=== PATIENT | female | born 1985 | race Caucasian/White ===

== ENCOUNTER 2018-01-06 03:35 | Emergency (ER) | payer MEDICAID, SELFPAY ==
[2018-01-06 03:36] VITALS: BP 132/91; PULSE 103; RESP 15; TEMP 36.8; O2SAT 97; BMI 28.3
--- NOTE | 2018-01-06 03:54 | ED.DCSUM_ITS ---
- ER Visit Summary Date of Service: 01/06/18 Chief Complaint: [] Nasal tip skin tenderness History of Present Illness: The patient is a 32 F stated she developed a pimple on the tip of her nose and now there is some redness and up of her nose. This started just a day ago. She does pick at pimples. No home treatment. History of IV drug use. She is never injected on the nose Physical Examination: [] Vital signs reviewed General: Well-nourished well-developed Head: Normocephalic atraumatic Eyes: Pupils equal round and reactive to light extraocular movements intact ENT: TMs clear no hemotympanum no trauma. See skin exam Neck: Nontender full range of motion Cardiovascular: Regular rate rhythm no murmurs normal S1-S2 Respiratory: No distress clear to auscultation bilaterally chest nontender Abdomen: Soft nontender nondistended normal bowel sounds no masses Back: Nontender no CVA tenderness Extremities: Nontender active range of motion ?4 extremities no trauma Skin: Nasal tip has a soft very small open pimple that was broken open. There is no abscess. She has very mild swelling and inflammation to the tip of her nose measuring 0.5 x 0.5 cm. Neuro alert oriented cranial nerves II through XII intact normal strength sensation reflexes Test Results: [] Emergency Department Course and Treatment: [] She given oral Bactrim and a prescription for Bactroban ointment. She will put this on a lesions on her nose. At this time she is has a mild superficial cellulitis Treatment Plan: [] Disposition: [] Impression: [] Nasal tip cellulitis This note was generated with [employer] dictation software. It may contain incorrect words, spelling, and punctuation that were not noted in review of the chart prior to signing ED Disposition - Plan for ED Patient: Chief Complaint: Wound Referrals: Care Physician,No Primary [Primary Care Provider] -
--- NOTE | 2018-01-06 03:54 | ED.DEP ---
ED Disposition - Plan for ED Patient: Disposition: Home or Assisted Living Chief Complaint: Wound Instructions: Discharge Instructions for Cellulitis Prescriptions: Smz/Tmp Ds [Bactrim Ds] 1 tab PO BID #14 tab Mupirocin [Bactroban] 1 applic TOPICAL TID #1 tube Referrals: Care Physician,No Primary [Primary Care Provider] - Liam Kamara DO [NON CLINICAL AFFILIATE] -
[2018-01-06] MEDS: Smz/Tmp Ds Tablet 1 TABLET PO (03:58)
== END 2018-01-06 03:59 | disposition home or self-care (01) ==
PROVIDERS: Emergency Provider Emergency Medicine; Family Provider Family Medicine; PCP Family Medicine
DX: L03.211 Cellulitis of face (principal); B19.20 Unspecified viral hepatitis C without hepatic coma; Z72.0 Tobacco use
CPT/HCPCS: 99283

== ENCOUNTER 2018-01-15 02:54 | Emergency (ER) | payer MEDICAID, SELFPAY ==
[2018-01-15 03:04] VITALS: BP 120/60; PULSE 86; RESP 16; TEMP 37.1; O2SAT 97; BMI 28.4
--- NOTE | 2018-01-15 03:09 | ED.DCSUM_ITS ---
- ER Visit Summary Date of Service: 01/15/18 Chief Complaint: Heroin overdose History of Present Illness: The patient is a 32 F who is brought in by EMS in the company of police following an overdose. Apparently she was in the basement of a house where they were doing tattoos and she overdosed on heroin. She received nasal and IV Narcan. Patient noted by EMS to be breathing shallow at only about 2 times per minute. After Narcan she was vomiting and is more alert patient states that she is cold. Physical Examination: Afebrile vital signs are stable Gen: Well-nourished well-developed Head: Normocephalic atraumatic Eyes: Perrl EOMI ENT: TMs clear no rhinorrhea moist mucous membranes Neck: Supple no lymphadenopathy no JVD nontender CVS: Regular rate rhythm no murmurs normal S1-S2 Respiratory: No distress clear to auscultation bilaterally chest nontender Abdomen: Soft nontender nondistended normal bowel sounds no masses Back: Nontender Extremity: Nontender no edema Skin: Normal color no rash piloerection Neuro: alert orientated ?3 CN II-XII intact normal strength sensation reflexes gait cerebellar Psych: Angry Emergency Department Course and Treatment: Observed in the department. She is actively texting on her phone and conversing with a visitor. She will be discharged home. Given referrals. Impression: 1. Opiate overdose This note was generated with [employer] dictation software. It may contain incorrect words, spelling, and punctuation that were not noted in review of the chart prior to signing ED Disposition - Plan for ED Patient: Disposition: Home or Assisted Living Chief Complaint: Overdose Instructions: ED Overdose Opiate Referrals: Richar Chris MD [Primary Care Provider] - As soon as possible EIGHTY,ONE [STAFF PHYSICIAN] - As soon as possible
== END 2018-01-15 03:58 | disposition home or self-care (01) ==
PROVIDERS: Emergency Provider Emergency Medicine; Family Provider Family Medicine; PCP Family Medicine
DX: T40.1X1A Poisoning by heroin, accidental (unintentional), initial encounter (principal); Y92.008 Other place in unspecified non-institutional (private) residence as the place of occurrence of the external cause; Z72.0 Tobacco use
CPT/HCPCS: 99284; J7030

== ENCOUNTER 2018-04-19 22:48 | Emergency (ER) | payer MEDICAID, SELFPAY ==
[2018-04-19 22:49] VITALS: BP 129/86; PULSE 83; RESP 16; TEMP 36.7; O2SAT 100; BMI 27.1
--- NOTE | 2018-04-19 23:17 | ED.DCSUM_ITS ---
- ER Visit Summary Date of Service: 04/19/18 Chief Complaint: [] Right hip abscess History of Present Illness: The patient is a 33 F [] complaining of right hip abscess. Patient stated it started 4 days ago. It came on gradually. It is continuous and mild in nature. There is a mild ache to it. Current severity is mild. Maximum severity is mild. Worsened by touching it. Relieved by not touching it. Denies any associated symptoms. She has had 4 in the past. She has open this up today and squeezed out some mild purulence. Recent illness patient denies Past history include abscess Past surgical history include cholecystectomy and Family doctor Dot Prior records have been reviewed Medications list reviewed Allergies denies Positive tobacco and denies alcohol or illegal drugs currently ROS General: Denies fever, chills, sweats Eyes: Denies visual changes, blurred vision, double vision ENT: Denies ear pain, rhinorrhea, sore throat Cardiovascular: Denies chest pain, palpitations, heart racing Respiratory: Denies dyspnea, cough, sputum, dyspnea on exertion, orthopnea,PND GI: Denies abdominal pain, nausea, vomiting, diarrhea, constipation, melena : Denies dysuria, hematuria, frequency Musculoskeletal: Denies myalgias, arthralgias, neck pain, back pain Skin: abscess to the right hip Neuro: Denies headache, weakness, paresthesia Psych: Denies depression, anxiety Endo: Denies polyuria, polydipsia, polyphagia Heme: Denies easy bruising, easy bleeding, lymphadenopathy Allergy: Denies hives, swelling Physical Examination: [] Vital signs reviewed General: Well-nourished well-developed Head: Normocephalic atraumatic Eyes: Pupils equal round and reactive to light extraocular movements intact ENT: TMs clear no hemotympanum no trauma Neck: Nontender full range of motion Cardiovascular: Regular rate rhythm no murmurs normal S1-S2 Respiratory: No distress clear to auscultation bilaterally chest nontender Abdomen: Soft nontender nondistended normal bowel sounds no masses Back: Nontender no CVA tenderness Extremities: Nontender active range of motion ?4 extremities no trauma Skin: Right hip has a 0.5 x 0.5 superficial abscess. There is a 2 x 2 mm central draining open area. There is no pus when squeezing. There is 1 mm of surrounding redness. Neuro alert oriented cranial nerves II through XII intact normal strength sensation reflexes Test Results: [] Emergency Department Course and Treatment: [] This time I think the patient has a superficial MRSA abscess without cellulitis. Given Bactrim. It is opened and drained. She will continue warm compresses and squeezing it. She will continue Bactrim. I do not feel there is anything to incise and drain Treatment Plan: [] Disposition: [] Discharge Impression: [] Right hip draining abscess This note was generated with [employer] dictation software. It may contain incorrect words, spelling, and punctuation that were not noted in review of the chart p rior to signing ED Disposition - Plan for ED Patient: Chief Complaint: Abscess Referrals: Richar Chris MD [Primary Care Provider] -
--- NOTE | 2018-04-19 23:17 | ED.DEP ---
ED Disposition - Plan for ED Patient: Disposition: Home or Assisted Living Chief Complaint: Abscess Instructions: ED Staph Infec Abx Tx Only Prescriptions: Smz/Tmp Ds [Bactrim Ds] 1 tab PO BID #14 tab Referrals: Richar Chris MD [Primary Care Provider] -
[2018-04-19] MEDS: Smz/Tmp Ds Tablet 1 TABLET PO (23:22)
== END 2018-04-19 23:27 | disposition home or self-care (01) ==
LOC: ED 23:20
PROVIDERS: Emergency Provider Emergency Medicine; Family Provider Family Medicine; PCP Family Medicine
DX: L02.91 Cutaneous abscess, unspecified (principal); Z72.0 Tobacco use
CPT/HCPCS: 99283

== ENCOUNTER 2018-07-17 14:13 | Emergency (ER) | payer MEDICAID, SELFPAY ==
[2018-07-17 14:14] VITALS: BP 117/61; PULSE 93; RESP 15; TEMP 36.3; O2SAT 99; BMI 26.5
--- NOTE | 2018-07-17 15:04 | ED.DCSUM_ITS ---
- ER Visit Summary Date of Service: 07/17/18 Chief Complaint: Abscess to left cheek and right axilla History of Present Illness: The patient is a 33 F who presents with abscess to her left cheek and right axilla that has been getting worse since yesterday. Patient noted some redness over the left infraorbital area yesterday. Patient states she has had some pain and swelling in her right axilla for a couple days. Patient denies any fevers or chills. Patient denies any discharge or drainage. Patient denies any visual changes. Patient denies any nausea or vomiting. She is also requesting a prescription for triamcinolone cream for the eczema on her hands. Physical Examination: Vital signs are stable. Patient is afebrile. Patient is in no acute distress. Skin is warm and dry. There is a tender erythematous area over the left lateral infraorbital area. There is no fluctuance. There is no discharge or drainage. There is no surrounding erythema. There is also a tender area in the right axilla. There is slight erythema. There is no discharge or drainage. There is no fluctuance. Pupils are equal, round, reactive to light bilaterally. Extra muscles are intact. Oral mucosa is pink and moist. Neck is supple. Trachea is midline. No JVD. Heart was regular rate and rhythm. Lungs are clear and equal bilateral. Abdomen is soft and nontender. Skin is warm dry. There is eczema noted on the palms of her hands bilaterally. There is some cracking. There is no discharge or drainage. There is no erythema noted. Emergency Department Course and Treatment: Patient was given a prescription for clindamycin and triamcinolone cream. Patient was instructed to follow-up with a primary care physician in 5-7 days. Patient was given a referral. Patient understood and was agreeable with the plan. All questions were answered. Disposition: Discharge home Impression: 1. Facial abscess 2. Right axillary abscess 3. Eczema This note was generated with [employer] software. It may contain incorrect words, spelling, and punctuation that were not noted in review of the chart prior to signing ED Disposition - Plan for ED Patient: Disposition: Home or Assisted Living Diagnosis: Eczema, Facial abscess, Abscess of right axilla Instructions: ED Staph Infec Abx Tx Only, ED Dermatitis Atopic Eczema Prescriptions: Triamcinolone 0.1% Cream [Robertalog] 1 applic TOPICAL BID #30 g Clindamycin HCl [Cleocin] 300 mg PO Q6H #40 cap Referrals: Richar Chris MD [Primary Care Provider] - 5-7 Days
[2018-07-17 15:23] VITALS: BP 116/64; PULSE 87; RESP 16; O2SAT 100
== END 2018-07-17 15:24 | disposition home or self-care (01) ==
PROVIDERS: Emergency Provider Emergency Medicine; Family Provider Family Medicine; PCP Family Medicine
DX: L02.01 Cutaneous abscess of face (principal); L02.411 Cutaneous abscess of right axilla; L30.9 Dermatitis, unspecified; Z72.0 Tobacco use
CPT/HCPCS: 99282

== ENCOUNTER 2018-07-27 13:47 | Emergency (ER) | payer MEDICAID, SELFPAY ==
[2018-07-27 13:47] VITALS: BP 127/69; PULSE 106; RESP 12; TEMP 36.2; O2SAT 97; BMI 26.5
[2018-07-27 14:19] LABS: Internal QC Validated? YES +Cl - CLEAR BKGD
[2018-07-27 14:26] LABS: Pregnancy, Urine Positive Negative
--- NOTE | 2018-07-27 14:29 | ED.VIS.GEN ---
History of Present Illness Chief Complaint: Informant: Patient Onset: Today Context: Gradual Onset Current Severity: Mild Maximum Severity: Mild Narrative: 33-year-old female presents requesting a test. She is 3 weeks late on her menstrual period. She already had a positive test but she has been accepted into an outpatient heroin detox program and needs proof of before she can go there today. She has no other complaints at all. She denies suicidal thoughts or ideation. She has no vaginal bleeding, abdominal pain, or pelvic pressure at all. Past Medical History - Allergies and Home Meds Allergies/Adverse Reactions: Allergies No Known Allergies Allergy (Verified 07/27/18 13:50) Primary Care Physician: Richar Chris MD [Primary Care Provider] - Prior records reviewed: No Smoking Status: Current every day smoker Drugs: Heroin Review of Systems General: Denies: Chills, Fever, Sweats Eyes: Denies: Visual changes - bilaterally, Diplopia ENT: Denies: Rhinorrhea, Sore throat Cardiovascular: Denies: Chest pain, Palpitations Respiratory: Denies: Dyspnea, Cough, Dyspnea on exertion Gastrointestinal: Denies: Abdominal pain, Nausea, Vomiting, Diarrhea, Melena, Hematochezia Genitourinary: Denies: Dysuria, Hematuria, Frequency Musculoskeletal: Denies: Back pain, Extremity Pain Skin: Denies: Rash, Wounds Neurological: Denies: Headache, Weakness, Numbness Physical Exam Vital Signs/Narrative: Vital Signs Temp Pulse Resp BP Pulse Ox 07/27/18 13:47 97.1 F L 106 H 12 127/69 H 97 General: Well nourished, Well developed, No Acute Distress Head: Normocephalic, Atraumatic Eyes: Perrl, EOMI ENT: Moist mucous membranes, No rhinorrhea Neck: Supple, Nontender Cardiovascular: Regular rate, Regular rhythm, No murmurs Respiratory: No distress, CTA bilaterally, Chest nontender Abdomen: Soft, Nontender, Nondistended, Normal bowel sounds Back: Nontender, Normal Inspection Extremities: Nontender, No edema Skin: Normal color, No rash Neurological: Alert, Oriented x3, Cranial nerves II-XII grossly intact, Normal Strength, Normal Sensation Psychological: Normal affect, Normal Mood Diagnostic/Tx/Re-eval - Medical Decision Making She has no complaints at all. No bleeding or pelvic pain to suggest ectopic . Urine test was positive. She basically states that she just wanted a piece of paper with the results so that she could go to the detox facility. No depression or suicidal thoughts/ideation. ED Disposition - Plan for ED Patient: Diagnosis: OPIOID ADDICT, First trimester Instructions: ED Care Prescriptions: Pnv No.95/Ferrous Fum/Folic AC [ Vitamins Tablet] 1 each PO DAILY #30 tablet Referrals: Richar hCris MD [Primary Care Provider] -
--- NOTE | 2018-07-27 14:48 | ED.RN ---
pt left without d/c papers.
== END 2018-07-27 14:48 | disposition home or self-care (01) ==
LOC: ED 14:47
PROVIDERS: Emergency Provider Emergency Medicine; Family Provider Family Medicine; PCP Family Medicine
DX: O99.321 Drug use complicating pregnancy, first trimester (principal); F11.20 Opioid dependence, uncomplicated; O99.331 Smoking (tobacco) complicating pregnancy, first trimester; Z3A.00 Weeks of gestation of pregnancy not specified
CPT/HCPCS: 81025; 99282

== ENCOUNTER 2018-10-08 07:29 | Emergency (ER) | payer MEDICAID, SELFPAY ==
[2018-10-08 07:29] VITALS: BP 118/58; PULSE 88; RESP 16; TEMP 36.2; O2SAT 97; BMI 26.5
--- NOTE | 2018-10-08 08:17 | ED.VISSUMM ---
- ER Visit Summary Date of Service: 10/08/18 Chief Complaint: Right axillary abscess History of Present Illness: The patient is a 33 F history of prior abscesses. Currently 14 weeks . Nondiabetic. Patient states for the last 1 to 2 weeks she is had a right axillary abscess. She denies any fever or chills. Denies any other complaints. Physical Examination: Young female no acute distress. Vital signs are stable afebrile. HEENT exam unremarkable. Lungs clear to auscultation bilaterally. Heart regular rhythm no murmur. Abdomen soft and nontender. Moving all 4 extremities. Neurovascular intact. Her right axilla has about a quarter sized fluctuant abscess. There is no cellulitis. It is mildly tender. Neurologically she is awake and alert. Test Results: None Emergency Department Course and Treatment: Patient and I discussed incision and drainage. She is adamantly against it. States she has had these drained before and it was very painful. I explained her there always we could drain it that would not be as uncomfortable. She was again offered and again denied. She understands that she may return because the antibiotics may not work without incision and drainage. She is willing to take that risk. I told her if this was me I would have it drained. Treatment Plan: Keflex 500 4 times daily for 10 days 40 no refill. Return if getting worse. Disposition: Discharge Impression: Right axillary abscess (patient refused incision and drainage) Reportedly at 14 weeks This note was generated with [employer] dictation software. It may contain incorrect words, spelling, and punctuation that were not noted in review of the chart prior to signing ED Disposition - Plan for ED Patient: Referrals: Richar Chris MD [Primary Care Provider] -
--- NOTE | 2018-10-08 08:19 | ED.DEP ---
ED Disposition - Plan for ED Patient: Disposition: Home or Assisted Living Instructions: ABSCESS, Antiobiotic Treatment Only Prescriptions: Cephalexin [Keflex] 500 mg PO Q6 #40 cap Prescription Printed Referrals: Richar Chris MD [Primary Care Provider] - 3-5 Days if not improving Additional Instructions: Warm compresses to the area. Tylenol for pain. Return if this is getting worse to have it drained.
[2018-10-08] MEDS: Cephalexin 250 MG Capsule 500 MG PO (08:30)
== END 2018-10-08 08:34 | disposition home or self-care (01) ==
PROVIDERS: Emergency Provider Emergency Medicine
DX: O99.712 Diseases of the skin and subcutaneous tissue complicating pregnancy, second trimester (principal); L02.411 Cutaneous abscess of right axilla; O99.332 Smoking (tobacco) complicating pregnancy, second trimester; Z3A.14 14 weeks gestation of pregnancy
CPT/HCPCS: 99283

== ENCOUNTER 2018-11-15 03:13 | Emergency (ER) | payer MEDICAID, SELFPAY ==
[2018-11-15 03:13] VITALS: BP 110/65; PULSE 117; RESP 20; TEMP 37.1; O2SAT 100; BMI 28.3
--- NOTE | 2018-11-15 03:40 | ED.VIS.GEN ---
History of Present Illness Chief Complaint: General Illness Detail of Chief Complaint: pain Informant: Patient Onset: Today - past 16-20 hrs Context: Gradual Onset Timing: Continuous Quality: ache Location: see below Current Severity: Severe Maximum Severity: Severe Worsened by: moving, walking Relieved by: remaining still Associated Symptoms: migraine Narrative: Patient states she started having left calf pain early in the day. This was followed by pain in her right thumb joints. As the day went on all of her fingers became affected, as well as her tongue. Now she states the pain in her fingers associated she cannot move them. She was dropping things because of the pain. She denies any numbness or neurologic weakness. At some point she developed a bifrontal headache with photophobia and blurry vision, no nausea or vomiting. This is typical for migraine she has had off and on in the past. At some point during the day she used heroin which she does often, she gets from the same dealer and cannot remember before or after which symptoms started that she used. She denies any fevers. She denies any back pain but she is having some soreness in her neck that is not severe. She is 4-5 months . She tried taking Tylenol but it did not help. - Past Medical History (1) Hepatitis C virus carrier state Status: Chronic (2) OPIOID ADDICT Status: Chronic Past Medical History - Allergies and Home Meds Allergies/Adverse Reactions: Allergies No Known Allergies Allergy (Verified 11/15/18 03:17) Surgical History: - - Smoking Status: Current every day smoker Drugs: Heroin Review of Systems General: Denies: Chills, Fever, Sweats Eyes: Denies: Visual changes - bilaterally, Diplopia ENT: Reports: - - Tongue pain with blister. Denies: Rhinorrhea, Sore throat Cardiovascular: Denies: Chest pain, Palpitations Respiratory: Denies: Dyspnea, Cough, Dyspnea on exertion Gastrointestinal: Denies: Abdominal pain, Nausea, Vomiting, Diarrhea, Melena, Hematochezia Genitourinary: Denies: Dysuria, Hematuria, Frequency Musculoskeletal: Reports: Extremity Pain. Denies: Back pain, Swelling Skin: Denies: Rash, Wounds Neurological: Reports: Headache. Denies: Weakness, Numbness Physical Exam Vital Signs/Narrative: Vital Signs Temp Pulse Resp BP Pulse Ox 11/15/18 03:13 98.8 F 117 H 20 H 110/65 100 Inital Vital Signs reviewed: Yes General: Well nourished, Well developed, No Acute Distress Head: Normocephalic, Atraumatic Eyes: Perrl, EOMI, - - Significant photophobia ENT: No rhinorrhea, Dry mucous membranes - Tongue, with a tender aphthous ulcer on the dorsal aspect distally/anterior approximately 1 cm from tip of tongue Neck: Supple, Nontender, No lymphadenopathy Cardiovascular: Regular rate, Regular rhythm, No murmurs, Normal S1, Normal S2 Respiratory: No distress, CTA bilaterally, Chest nontender Abdomen: Soft, Nontender, Normal bowel sounds. Negative for: Nondistended - Gravid uterus Back: Nontender, Normal Inspection Extremities: Calf Tenderness - Left, which appears larger than the right but without pretibial edema. Excellent range of motion of ankle without difficulty., - - No erythema, joint swelling, or tenderness of fingers, but severe pain with trying to move any of them. No osler's nodes or splinter hemorrhages on pads or nails (those of which were not painted). Skin: Normal color, No rash Neurological: Alert, Oriented x3, Cranial nerves II-XII grossly intact, Normal Strength, Normal Sensation Psychological: Normal Mood, - - Anxious Diagnostic/Tx/Re-eval Laboratory Tests 11/15/18 Range/Units 05:11 Sodium 136 (136-145) mmol/L Potassium 3.4 L (3.5-5.1) mmol/L Chloride 108 H (98-107) mmol/L Carbon Dioxide 20.0 L (21.0-32.0) mmol/L Anion Gap 8 (5-15) BUN 8 (7-18) mg/dL Creatinine 0.45 L (0.55-1.02) mg/dL Estim Creat Clear Calc 145.72 ml/min Est GFR (MDRD) Af Amer 207 (>60) mL/min Est GFR (MDRD) Non-Af 171 (>60) mL/min BUN/Creatinine Ratio 17.9 (10-20) RATIO Glucose 104 (74-106) mg/dL Calcium 8.2 L (8.5-10.1) mg/dL Total Creatine Kinase 23 L (26-192) U/L - Medical Decision Making I think it is reasonable to obtain an ultrasound of her left lower extremity to rule out DVT given her calf pain and possible swelling, however that is not available at this time, she has no symptoms at or above the trifurcation/popliteal space, so outpatient ultrasound tomorrow or later today is reasonable and will be set up for the patient. The rest of her symptoms are not from obvious cause. Unknown if her heroin abuse is related or not. The lesion on her tongue appears to be an aphthous ulcer. She has no objective erythema, excessive warmth, or swelling of any joints of her fingers. They are subjectively very painful to move. There is no erythema on the upper extremities or lymphangitis. All compartments are soft. She has a very antalgic gait but is able. She is crying and moaning. She was initially given IV fluids and Reglan and hoping that would help the symptoms but did not help her pain or her migraine. Being she has very limited options here. I sent electrolyte/chemistry panel and CPK, they show slightly low potassium and calcium levels, and are otherwise unremarkable. She was advised to stay hydrated and rest and have her ultrasound as soon as she is able. ED Disposition - Plan for ED Patient: Disposition: Home or Assisted Living Diagnosis: Migraine, Second trimester , Opiate abuse, continuous, Joint pain in fingers of both hands, Hypokalemia, Hypocalcemia Instructions: HYPOCALCEMIA (Adult), Hypokalemia, Opiate Abuse Referrals: Clark Roper MD [STAFF PHYSICIAN] - 1-2 Days if not improving [facility] [STAFF PHYSICIAN] - As Needed
[2018-11-15] MEDS: Metoclopramide 10 MG/2 ML Vial IV (03:50)
[2018-11-15] MEDS: LORazepam 2 MG/ML Syringe 0.5 MG IV (03:50)
[2018-11-15 05:39] LABS: Anion Gap 8 (5-15); BUN 8 mg/dL (7-18); BUN/Creat Ratio 17.9 RATIO (10-20); CPK Total, Creatine Kinase 23 U/L (26-192); Calcium,Total 8.2 mg/dL (8.5-10.1); Chloride 108 mmol/L (98-107); Creatinine, Serum 0.45 mg/dL (0.55-1.02); EST Glomerular Filtration Rate 171 mL/min (>60); Est Glom Filt Rate - Afr Amer 207 mL/min (>60); Estimated Creatinine Clearance 145.72 ml/min; Glucose 104 mg/dL (74-106); Potassium 3.4 mmol/L (3.5-5.1); Sodium Level 136 mmol/L (136-145)
[2018-11-15] MEDS: Calcium Carbonate 500 MG Tablet 1000 MG PO (06:02)
[2018-11-15] MEDS: Acetaminophen 500 MG Tablet 1000 MG PO (06:02)
[2018-11-15 06:09] VITALS: BP 112/65; PULSE 111; RESP 16; O2SAT 100
== END 2018-11-15 06:27 | disposition home or self-care (01) ==
PROVIDERS: Emergency Provider Emergency Medicine
DX: O99.352 Diseases of the nervous system complicating pregnancy, second trimester (principal); G43.909 Migraine, unspecified, not intractable, without status migrainosus; O99.322 Drug use complicating pregnancy, second trimester; F11.10 Opioid abuse, uncomplicated; O99.282 Endocrine, nutritional and metabolic diseases complicating pregnancy, second trimester; E83.51 Hypocalcemia; O98.412 Viral hepatitis complicating pregnancy, second trimester; O99.332 Smoking (tobacco) complicating pregnancy, second trimester; Z3A.00 Weeks of gestation of pregnancy not specified
CPT/HCPCS: 80048; 82550; 96361; 96374; 96375; 99284; J7040; A4216

== ENCOUNTER → 2018-12-03 | Outpatient (CLI) | payer MEDICAID, SELFPAY ==
[2018-11-15 03:13] VITALS: BMI 28.3
[2018-12-03 16:18] LABS: Color, Urine Yellow (Yellow); Glucose, Dipstick Normal (Normal); Ketone-Dipstick Negative (Negative); Leukocyte Esterase-Dipstick Negative /ul (Negative); Nitrite-Dipstick Negative (Negative); Occult Blood-Urine Negative /ul (Negative); Protein-Dipstick Negative (Negative); Specific Gravity, Urine 1.015 (1.002-1.030); Urine Bilirubin Dipstick Negative (Negative); Urine Clarity Clear (Clear); Urine Urobilinogen Normal (Normal); Urine pH 6.5 (5.0 - 8.0)
[2018-12-03 16:20] LABS: Absolute Lymphocyte Count 1.77 X10^3/uL (0.83-4.51); Absolute Neutrophil Count 5.7 X10^3/uL (2.0-7.7); Basophil# 0.04 X10^3/uL; Basophil% 0.5 % (0-1); Eosinophil# 0.17 X10^3/uL; Hematocrit 34.7 % (37-47); Hemoglobin 11.3 g/dL (12.0-15.0); Lymphocyte # 1.77 X10^3/ul (4.0); Lymphocyte % 21.3 % (19-41); Mean Corp Hgb Conc 32.6 g/dL (32-36); Mean Corpuscular Hgb 30.5 pg (27.0-32.0); Mean Corpuscular Volume 93.5 fL (81-99); Mean Platelet Vol. 9.9 fl (6.2-12.0); Monocyte# 0.52 X10^3/uL; Monocyte% 6.3 % (0-10); NRBC Flagged by Analyzer 0 % (0-5); Neutrophil % 68.6 % (47-70); Platelet Count 283 K/mm3 (150-450); RBC Distribution Width CV 12.4 % (11.6-14.6); RBC Distribution Width SD 42.5 fl (35.1-43.9); Red Blood Count 3.71 M/mm3 (4.2-5.4); White Blood Count 8.3 K/mm3 (4.4-11.0)
[2018-12-03 16:23] LABS: Amphetamine Urine VISTA POSITIVE (<1000 ng/mL); Barbiturate Urine VISTA NEGATIVE (< 200 ng/mL); Benzodiazepine Urine VISTA NEGATIVE (< 200 ng/mL); Cocaine Urine VISTA NEGATIVE (< 300 ng/mL); Ecstacy Urine VISTA NEGATIVE (< 500 ng/mL); Methadone Urine VISTA NEGATIVE (< 300 ng/mL); PCP Urine VISTA NEGATIVE (< 25 ng/mL); THC Urine VISTA POSITIVE (< 50 ng/mL); Vista UDS pH Range 6
[2018-12-03 16:30] LABS: COTININE Drug Screen Positive (<200 ng/mL)
[2018-12-03 16:36] LABS: Thyroid Stim Hormone (TSH) 2.41 uIU/mL (0.358-3.74)
[2018-12-03 20:01] LABS: Chlamydia Trachomatis by PCR Negative (Negative); Neisserai gonorrhoeae by PCR Negative (Negative); Probe Check PASS; Sample Adequacy Control PASS; Specimen Processing Control PASS
[2018-12-04 10:01] LABS: HIV - WCH Non-Reactive (Nonreactive); Hepatitis B Surface Antigen Non-Reactive (Nonreactive); Rubella IgG 26.1 IU/mL
[2018-12-04 10:14] LABS: Hepatitis C Antibody REACTIVE (Nonreactive)
[2018-12-07 01:38] LABS: Prenatal RPR NONREACTIVE (NONREACTIVE)
[2018-12-10 13:56] LABS: HPV APTIMA, High Risk Positive (Negative)
== END | disposition home or self-care (01) ==
LOC: WOBLAB 13:39
PROVIDERS: Visit Provider Obstetrics & Gynecology
DX: O98.412 Viral hepatitis complicating pregnancy, second trimester (principal); B19.20 Unspecified viral hepatitis C without hepatic coma; Z3A.00 Weeks of gestation of pregnancy not specified; Z11.3 Encounter for screening for infections with a predominantly sexual mode of transmission
CPT/HCPCS: 36415; 80307; 81002; 84443; 85025; 86703; 86762; 86803; 87340; 87491; 87591; 88175; G0145

== ENCOUNTER → 2018-12-07 | Outpatient (CLI) | payer MEDICAID, SELFPAY ==
[2018-11-15 03:13] VITALS: BMI 28.3
[2018-12-07 14:29] LABS: Amphetamine Urine VISTA POSITIVE (<1000 ng/mL); Barbiturate Urine VISTA NEGATIVE (< 200 ng/mL); Benzodiazepine Urine VISTA NEGATIVE (< 200 ng/mL); Cocaine Urine VISTA POSITIVE (< 300 ng/mL); Ecstacy Urine VISTA POSITIVE (< 500 ng/mL); Methadone Urine VISTA NEGATIVE (< 300 ng/mL); PCP Urine VISTA NEGATIVE (< 25 ng/mL); THC Urine VISTA POSITIVE (< 50 ng/mL); Vista UDS pH Range 6
== END | disposition home or self-care (01) ==
LOC: LABSPEC 14:06
PROVIDERS: Visit Provider Obstetrics & Gynecology
DX: F15.90 Other stimulant use, unspecified, uncomplicated (principal)
CPT/HCPCS: 80307

== ENCOUNTER 2018-12-14 05:04 | Emergency (ER) | payer MEDICAID, SELFPAY ==
[2018-12-14 05:06] VITALS: BP 103/47; PULSE 89; RESP 16; TEMP 36.7; O2SAT 97; BMI 29.2
--- NOTE | 2018-12-14 05:48 | ED.VIS.GEN ---
History of Present Illness Chief Complaint: Upper Extremity Injury Informant: Patient Onset: Month(s) - 1 Narrative: [id number], G5, P4 22 weeks gestation presents with left shoulder pain reports nontraumatic for the last month. Pain worse with movement. She reports she been using ibuprofen with no relief. Denies any previous similar symptoms in the past. OB is Dr. Cloud. Prior similar symptoms: No Past Medical History - Allergies and Home Meds Allergies/Adverse Reactions: Allergies No Known Allergies Allergy (Verified 12/14/18 05:05) Primary Care Physician: Richar Chris MD [Primary Care Provider] - Arturo Trinidad DO [STAFF PHYSICIAN] - 5-7 Days Surgical History: - - Smoking Status: Current every day smoker Review of Systems General: Denies: Chills, Fever, Sweats Eyes: Denies: Visual changes - bilaterally, Diplopia ENT: Denies: Rhinorrhea, Sore throat Cardiovascular: Denies: Chest pain, Palpitations Respiratory: Denies: Dyspnea, Cough, Dyspnea on exertion Gastrointestinal: Denies: Abdominal pain, Nausea, Vomiting, Diarrhea, Melena, Hematochezia Genitourinary: Denies: Dysuria, Hematuria, Frequency Musculoskeletal: Reports: Myalgias, Extremity Pain. Denies: Back pain Skin: Denies: Rash, Wounds Neurological: Denies: Headache, Weakness, Numbness Physical Exam Vital Signs/Narrative: Vital Signs Temp Pulse Resp BP Pulse Ox 12/14/18 05:06 98.0 F 89 16 103/47 L 97 Inital Vital Signs reviewed: Yes General: Well nourished, Well developed, No Acute Distress Head: Normocephalic, Atraumatic Eyes: Perrl, EOMI ENT: Moist mucous membranes, No rhinorrhea Neck: Supple, Nontender Cardiovascular: Regular rate, Regular rhythm, No murmurs Respiratory: No distress, CTA bilaterally, Chest nontender Abdomen: Soft, Nontender, Normal bowel sounds, - - Gravid abdomen Back: Nontender, Normal Inspection Extremities: No edema, - - Left upper extremity: No clavicular or acromioclavicular tenderness. No deformities of the shoulder. Attempted passive range of motion the shoulder however patient with pushed away reporting too much pain. She is able to passively move her arm herself with her dominant arm. Skin: Normal color, No rash Neurological: Alert, Oriented x3, Cranial nerves II-XII grossly intact, Normal Strength, Normal Sensation Psychological: Agitated Diagnostic/Tx/Re-eval - Medical Decision Making Patient vital signs stable. Discussed with patient with her cannot use NSAIDs. Discussed Tylenol is safe for . She reports she will take whenever she is able to. Discussed with patient there is no deformity for concerns of dislocation. Discussed concerns for possible rotator cuff injury. Discussed with patient for an orthopedic referral for follow-up for possible local treatment. She is unhappy with plan of care reporting she will find her own orthopedist and call. Patient left the department without paperwork. ED Disposition - Plan for ED Patient: Disposition: Home or Assisted Living Diagnosis: Dysfunction of left rotator cuff Instructions: Understanding Rotator Cuff Injuries Referrals: Richar Chris MD [Primary Care Provider] - Arturo Trinidad DO [STAFF PHYSICIAN] - 5-7 Days
--- NOTE | 2018-12-14 05:53 | ED.RN ---
PT STATES SHE WILL FIND HER OWN ORTHOPEDIC DOCTOR AND WALKED OUT OF THE ER PRIOR TO D/C INSTRUCTIONS BEING GIVEN. MD LAGUNA
[2018-12-14 05:54] VITALS: RESP 18
== END 2018-12-14 05:54 | disposition home or self-care (01) ==
PROVIDERS: Emergency Provider Emergency Medicine; Family Provider Family Medicine; PCP Family Medicine
DX: O99.89 Other specified diseases and conditions complicating pregnancy, childbirth and the puerperium (principal); M75.102 Unspecified rotator cuff tear or rupture of left shoulder, not specified as traumatic; O99.332 Smoking (tobacco) complicating pregnancy, second trimester; F17.200 Nicotine dependence, unspecified, uncomplicated; Z3A.22 22 weeks gestation of pregnancy
CPT/HCPCS: 99282

== ENCOUNTER 2019-01-01 10:13 | Emergency (ER) | payer MEDICAID, SELFPAY ==
[2019-01-01 10:14] VITALS: BP 121/63; PULSE 90; RESP 18; TEMP 36.6; O2SAT 99; BMI 21.2
--- NOTE | 2019-01-01 10:20 | ED.RN ---
PT REPORTS ABD PAIN STATES IM HAVING CONTRACTIONS. 25 WEEKS . SENT TO OB FOR EVALUATION.
--- NOTE | 2019-01-01 10:54 | ED.RN ---
CLEARED FROM OB AND SENT BACK TO ED FOR EVALUATION.
--- NOTE | 2019-01-01 11:03 | EKG12_ITS ---
Test Reason : Blood Pressure : / mmHG Vent. Rate : 063 BPM Atrial Rate : 063 BPM P-R Int : 150 ms QRS Dur : 090 ms QT Int : 436 ms P-R-T Axes : 053 096 049 degrees QTc Int : 446 ms Normal sinus rhythm Rightward axis Borderline ECG Confirmed by CONTRERAS TOLEDO, RICK ([id number]), production editor SHREE LAU ([id number]) on 01/02/2019 2:10:17 PM Referred By: JAZZY Confirmed By:RICK CHAIREZ MD
--- NOTE | 2019-01-01 11:08 | NURSING ---
NO OLD EKGS
[2019-01-01] MEDS: 0.9% Normal Saline 1,000 ML 999 ML IV (11:27)
[2019-01-01] MEDS: proMETHazine 25 MG/ML Syringe 12.5 MG IV ×2 (11:28→13:23)
--- NOTE | 2019-01-01 11:29 | ED.VISSUMM ---
- ER Visit Summary Date of Service: 01/01/19 Chief Complaint: Fentanyl withdrawal History of Present Illness: The patient is a 33 F who states that she is approximately 27 weeks . She states that she uses multiple types of drugs. She states that she knew she was going to have to report for assisted time beginning yesterday and Monday of last week got released from a substance abuse rehab facility. For the next 7 days she used fentanyl. She states she was using every 30 minutes. Then yesterday she entered assisted and was released today due to withdrawal symptoms to come to the hospital. She is G5, P4. She notes nausea vomiting diarrhea tactile disturbances yawning. No hallucinations. Physical Examination: Afebrile vital signs stable Gen: Well-nourished well-developed patient is vomiting Head: Normocephalic atraumatic Eyes: Perrl EOMI ENT: TMs clear no rhinorrhea moist mucous membranes Neck: Supple no lymphadenopathy no JVD nontender CVS: Regular rate rhythm no murmurs normal S1-S2 Respiratory: No distress clear to auscultation bilaterally chest nontender Abdomen: Soft nontender nondistended normal bowel sounds no masses Back: Nontender Extremity: Nontender no edema Skin: Skin sores consistent with drug abuse she has mild piloerection Neuro: alert orientated ?3 CN II-XII intact normal strength sensation reflexes gait cerebellar Psych: Patient appears anxious and at times agitated Test Results: EKG shows a sinus rhythm at a rate of 63. Potassium noted to be 3. Urine drug screen obtained. Emergency Department Course and Treatment: Patient received IV fluids and Phenergan. Once the patient was able to provide us a urine specimen and the results were obtained I contacted [facility] and spoke with Dr. Tucker. She was accepted and mauro was called. The patient took out her IV and stated that she was leaving that she would go to [facility] on her own and did not want our help anymore. She subsequently left the department. [facility] was updated. Impression: 1. Polysubstance drug abuse 2. Opiate withdrawal 3. Third trimester This note was generated with Vyattaation software. It may contain incorrect words, spelling, and punctuation that were not noted in review of the chart prior to signing ED Disposition - Plan for ED Patient: Disposition: Against Medical Advice Referrals: Richar Chris MD [Primary Care Provider] -
--- NOTE | 2019-01-01 11:35 | NURSING ---
CALLED LOOM STOP CHECKER, DR LOUIS. DR HICKMAN WANTS TO KNOW IF PATIENT HAD AN ULTRASOUND DONE IN OCTOBER AND ANYTHING THEY CAN GIVE US.
[2019-01-01 12:37] LABS: Absolute Lymphocyte Count 1.61 X10^3/uL (0.83-4.51); Absolute Neutrophil Count 9.6 X10^3/uL (2.0-7.7); Basophil# 0.02 X10^3/uL; Basophil% 0.2 % (0-1); Hematocrit 40.1 % (37-47); Hemoglobin 13.4 g/dL (12.0-15.0); Lymphocyte # 1.61 X10^3/ul (4.0); Lymphocyte % 13.7 % (19-41); Mean Corp Hgb Conc 33.4 g/dL (32-36); Mean Corpuscular Hgb 29.5 pg (27.0-32.0); Mean Corpuscular Volume 88.3 fL (81-99); Mean Platelet Vol. 8.8 fl (6.2-12.0); Monocyte# 0.37 X10^3/uL; Monocyte% 3.2 % (0-10); NRBC Flagged by Analyzer 0 % (0-5); Neutrophil # 9.63 X10^3/uL (2.7-7.7); Platelet Count 371 K/mm3 (150-450); RBC Distribution Width CV 11.9 % (11.6-14.6); Red Blood Count 4.54 M/mm3 (4.2-5.4); White Blood Count 11.7 K/mm3 (4.4-11.0)
[2019-01-01 12:52] LABS: AST(SGOT) 11 U/L (15-37); Alanine Aminotransfer ALT/SGPT 23 U/L (13-56); Albumin, Serum 2.3 g/dL (3.2-5.0); Alkaline Phosphatase 210 U/L (45-117); Anion Gap 9 (5-15); BUN 9 mg/dL (7-18); BUN/Creat Ratio 17.4 RATIO (10-20); Bilirubin, Direct 0.19 mg/dL (0.00-0.30); Calcium,Total 8.8 mg/dL (8.5-10.1); Chloride 111 mmol/L (98-107); Creatinine, Serum 0.52 mg/dL (0.55-1.02); EST Glomerular Filtration Rate 144 mL/min (>60); Est Glom Filt Rate - Afr Amer 174 mL/min (>60); Globulin 5.5 g/dL (2.2-4.2); Glucose 92 mg/dL (74-106); Magnesium 1.7 mg/dL (1.6-2.6); Protein, Total 7.8 g/dL (6.4-8.2); Sodium Level 140 mmol/L (136-145)
[2019-01-01 12:54] LABS: Red Blood Cells-Urine 0 SEEN /hpf (0-5)
[2019-01-01 12:57] LABS: Color, Urine Yellow (Yellow); Glucose, Dipstick Normal (Normal); Leukocyte Esterase-Dipstick 25 /ul (Negative); Nitrite-Dipstick Negative (Negative); Occult Blood-Urine Negative /ul (Negative); Protein-Dipstick 30 mg/dl (Negative); Specific Gravity, Urine 1.015 (1.002-1.030); Urine Bilirubin Dipstick Negative (Negative); Urine Clarity Sl. Cloudy (Clear); Urine Urobilinogen Normal (Normal)
[2019-01-01 12:58] LABS: Ketone-Dipstick 150 mg/dl (Negative)
[2019-01-01 13:03] LABS: Bacteria 1+ /hpf (None Seen); Mucous, Urine 1+ /hpf (<or=2+); Squamous Epithelial Cells - UA 0-5 SEEN /hpf (5-10); White Blood Cells 0-5 SEEN /hpf (0-5)
[2019-01-01 13:17] LABS: Amphetamine Urine VISTA POSITIVE (<1000 ng/mL); Barbiturate Urine VISTA NEGATIVE (< 200 ng/mL); Benzodiazepine Urine VISTA POSITIVE (< 200 ng/mL); Cocaine Urine VISTA NEGATIVE (< 300 ng/mL); Ecstacy Urine VISTA NEGATIVE (< 500 ng/mL); Methadone Urine VISTA NEGATIVE (< 300 ng/mL); PCP Urine VISTA NEGATIVE (< 25 ng/mL); THC Urine VISTA POSITIVE (< 50 ng/mL); Vista UDS pH Range 6
[2019-01-01 13:24] VITALS: BP 99/53; PULSE 78; RESP 18; O2SAT 100
--- NOTE | 2019-01-01 14:01 | ED.RN ---
pt pulled iv out and walked out of er. nursing talked with pt reviewed plan and importance. pt is insistant that she is taking herself to [facility]. refusing to return to er for transfer or further care at this time. symone gutierrez rn and security and HRO officer support. pt contineus to refuse.
--- NOTE | 2019-01-01 14:04 | NURSING ---
1354 CALLED [facility]. ETA IS [id number] CALLED [facility] TO CANCEL SQUAD, PATIENT IS GONE
== END 2019-01-01 14:04 | disposition left against medical advice (07) ==
PROVIDERS: Emergency Provider Emergency Medicine; Family Provider Family Medicine; PCP Family Medicine
DX: O99.322 Drug use complicating pregnancy, second trimester (principal); F11.23 Opioid dependence with withdrawal; Z3A.27 27 weeks gestation of pregnancy; E87.6 Hypokalemia
CPT/HCPCS: 80048; 80076; 80307; 80320; 81001; 83735; 85025; 93005; 96374; 96376; J7030; A4216; G0480

== ENCOUNTER 2019-01-01 10:25 | Outpatient (CLI) | payer MEDICAID, SELFPAY ==
[2019-01-01 10:14] VITALS: BMI 21.2
[2019-01-01 10:25] VITALS: BMI 23.8
--- NOTE | 2019-01-02 07:25 | OB.TRI.NOTE ---
History of Present Illness Date of Service: 01/01/19 - 27 wk r/o labor Was patient seen by the physician?: No Reason For Visit: R/O LABOR Date of Service: 01/01/19 Final SLICK: 04/01/19 Final SLICK Source: US <20 weeks Gestational age: 27 Weeks and 2 Days History of Present Illness: 33 yo female at 27 1/7 wk presents from emergency dept for rule out labor. Pt is actively withdrawing from fentanyl which she last took yesterday. She has been seen in our office once during this , late care. Tox screen positive then for cocaine, amphetamines, marijuana, methamphetamines. Allergies No Known Allergies Allergy (Verified 12/14/18 05:05) NST - FHR Rate Baby A Baseline: 150s avg with a variable to 125 less than 10 sec Variability:: Moderate Decelerations:: Variable NST Reactive:: Yes, Appropriate for gestational age FHR Category:: Category I Uterine Activity:: difficult to assess 2/2 pt movement, vomiting. Impression/Plan 33 yo female polysubstance abuse in active withdrawal with abdominal pain, N/V Late care and poor dates. 27 wk EGA Drug abuse, withdrawal Return to emergency room for stabilization. Recommend transfer to tertiary center for drug detoxification. Per MFM [facility] has such a facility. [facility] aware of patient by office phone call.
== END 2019-01-01 10:50 | disposition short-term general hospital (02) ==
LOC: WPOUT 10:36 → WP 10:38
PROVIDERS: Family Provider Family Medicine; PCP Family Medicine; Referring Provider Obstetrics & Gynecology; Visit Provider Obstetrics & Gynecology
DX: O99.322 Drug use complicating pregnancy, second trimester (principal); F11.23 Opioid dependence with withdrawal; F14.20 Cocaine dependence, uncomplicated; F12.20 Cannabis dependence, uncomplicated; F15.20 Other stimulant dependence, uncomplicated; Z3A.27 27 weeks gestation of pregnancy
CPT/HCPCS: 59025; 59050; 80048; 80076; 80307; 80320; 81001; 83735; 85025; 93005; 96361; 96374; 96376; 99218; 99283; J7030; A4216; G0378; G0480

== ENCOUNTER 2019-02-11 02:01 | Emergency (ER) | payer MEDICAID, SELFPAY ==
[2019-02-11 02:01] VITALS: BP 122/74; PULSE 90; RESP 17; TEMP 36.6; O2SAT 98; BMI 28.3
--- NOTE | 2019-02-11 02:11 | ED.DCSUM_ITS ---
History of Present Illness Chief Complaint: Dental Narrative: This patient is a 33-year-old female who presents with multiple complaints. She complains of dental pain for about 2 to 3 weeks which continues to get worse. This is her first time seeking medical care for the dental pain. She does not have a dentist. She complains of pain in both left upper and lower teeth. No fevers nausea vomiting. She also complains about 2 to 3 days of chest congestion and cough. Past Medical History - Allergies and Home Meds Allergies/Adverse Reactions: Allergies No Known Allergies Allergy (Verified 02/11/19 02:05) Primary Care Physician: Richar Chris MD [Primary Care Provider] - Past Medical History: None Surgical History: - - Smoking Status: Current every day smoker Review of Systems All systems negative except as indicated General: Denies: Fever ENT: Reports: - - Dental pain Cardiovascular: Denies: Chest pain Respiratory: Reports: Cough. Denies: Dyspnea Physical Exam Vital Signs/Narrative: Vital Signs Temp Pulse Resp BP Pulse Ox 02/11/19 02:01 97.8 F 90 17 122/74 H 98 Inital Vital Signs reviewed: Yes General: Well nourished, Well developed Head: Normocephalic Eyes: EOMI ENT: - - Widespread dental decay, dental tenderness of the maxillary left lateral incisor and canine as well as the left mandibular first molar no soft tissue or facial swelling no focal abscess amenable to incision and drainage Cardiovascular: Regular rate, Regular rhythm Respiratory: No distress, CTA bilaterally Diagnostic/Tx/Re-eval - Medical Decision Making Patient was started on penicillin VK. She was advised on supportive care for viral bronchitis as well. She was given a list of dental clinics. She was d ischarged. ED Disposition - Plan for ED Patient: Disposition: Home or Assisted Living Diagnosis: Pain, dental, Bronchitis Instructions: Dental Pain, Acute Bronchitis Prescriptions: Penicillin V Potassium 500 mg PO 4X/DAY #40 tab Prescription Printed Referrals: Richar Chris MD [Primary Care Provider] -
[2019-02-11 02:47] VITALS: RESP 18
[2019-02-11] MEDS: Penicillin Vk 250 MG Tablet 500 MG PO (02:48)
== END 2019-02-11 02:55 | disposition home or self-care (01) ==
LOC: ED 02:20
PROVIDERS: Emergency Provider Emergency Medicine; Family Provider Family Medicine; PCP Family Medicine
DX: J40 Bronchitis, not specified as acute or chronic (principal); K08.89 Other specified disorders of teeth and supporting structures; F17.200 Nicotine dependence, unspecified, uncomplicated
CPT/HCPCS: 99283

== ENCOUNTER 2019-05-30 14:21 | Inpatient (IN) | payer MEDICAID, SELFPAY ==
[2019-05-30] VITALS (10 sets, daily range): BP systolic 94–130; BP diastolic 55–90; PULSE 65–91; RESP 16–30; TEMP 36.8–37.1; O2SAT 96–100; BMI 27.7; BMI 27.3
--- NOTE | 2019-05-30 14:58 | CT_ITS ---
STUDY: CT SCAN THIGH RIGHT REASON FOR EXAM: Female, 34 years old. Right posterior thigh abscess x 2 weeks, no injury possibly from infected hair??? Prior hx drug use. RADIATION DOSAGE (If Supplied By Facility): CTDIvol = ( 15.35 ) mGy, DLP = ( 810.46 ) mGycm. Individualized dose optimization techniques were used for this CT.? TECHNIQUE: Multiple axial tomographic images were obtained from the hip joint to the knee joint following intravenous contrast administration. Coronal and sagittal reconstruction was obtained as well. COMPARISON: None. FINDINGS: There is evidence of a 4.4 Harshil by 3.2 cm x 3.4 cm area of increased density in the posterior medial aspect of the proximal right thigh with overlying skin thickening. This is suggestive of a cellulitis with focal area of phlegmon. No definite fluid collection or abscess is seen at this time. This abuts the overlying skin. CT/Extremity Lower WITH Contrast IMPRESSION: Focal subcutaneous phlegmon in the posterior medial aspect of the proximal right thigh with overlying skin thickening. The focal area of phlegmon abuts the skin surface. No definite abscess is seen at this Electronically Signed: Eulogio Solares, at 15:42 EST , Service support ,
[2019-05-30 15:21] LABS: Absolute Lymphocyte Count 3.33 X10^3/uL (0.83-4.51); Absolute Neutrophil Count 8.8 X10^3/uL (2.0-7.7); Basophil# 0.05 X10^3/uL; Basophil% 0.4 % (0-1); Eosinophil# 0.12 X10^3/uL; Eosinophils% 0.9 % (0-5); Hematocrit 40.1 % (37-47); Hemoglobin 12.7 g/dL (12.0-15.0); Lymphocyte # 3.33 X10^3/ul (4.0); Lymphocyte % 25.4 % (19-41); Mean Corp Hgb Conc 31.7 g/dL (32-36); Mean Corpuscular Hgb 27.4 pg (27.0-32.0); Mean Corpuscular Volume 86.4 fL (81-99); Mean Platelet Vol. 9.5 fl (6.2-12.0); Monocyte# 0.75 X10^3/uL; Monocyte% 5.7 % (0-10); NRBC Flagged by Analyzer 0 % (0-5); Neutrophil # 8.82 X10^3/uL (2.7-7.7); Neutrophil % 67.1 % (47-70); Platelet Count 270 K/mm3 (150-450); RBC Distribution Width CV 14.9 % (11.6-14.6); RBC Distribution Width SD 47.3 fl (35.1-43.9); Red Blood Count 4.64 M/mm3 (4.2-5.4); White Blood Count 13.1 K/mm3 (4.4-11.0)
--- NOTE | 2019-05-30 15:21 | ED.VISSUMM ---
- ER Visit Summary Date of Service: 05/30/19 Chief Complaint: [Abscess] History of Present Illness: The patient is a 34 F [resents to the emergency department complaint of an abscess to her right posterior thigh that initially developed 2 weeks ago. Patient states that initially started as an ingrown hair and she picked at it and popped it. Patient progressively started having increased swelling and discomfort to the area. Patient is currently in senior living and presents with police escort. Patient states she was started on Keflex 2 days ago and she had an area of erythema outlined with permanent marker and now the erythema has extended beyond that. Today they started her on Bactrim. Patient has had subjective fever and some chills. Patient states that she has no medical history. Patient has no prior surgical history.] Patient states that this afternoon she was sitting on the edge of the bed and she was draining large amount of purulent debris from the wound. Physical Examination: [HEENT-PERRLA, EOMI. Cranial nerves II through XII grossly intact. TMs clear. Mucous membranes moist. No adenopathy. Cardiovascular-regular rate and rhythm without murmur or ectopy Lungs-clear to auscultation, chest wall stable without crepitus or subcu emphysema Abdomen-normoactive bowel sounds, soft, nontender, no rebound or rigidity, no peritoneal signs. Extremities-intact ?4, normal range of motion, normal pulses. Right thigh-patient has a soft tissue abscess measuring approximately 6 x 5 cm with surrounding induration and significant erythema of over 15 cm. Area very tender to palpation.] Test Results: [CBC with differential count 13.1, hemoglobin 12.7, hematocrit 40, placed to 70. Chemistries unremarkable. Lactate was 1.0. CT scan of the right thigh obtained after discussing case with general surgeon on-call which showed a phlegmon with skin induration over the area of the right thigh but no discrete abscess.] Emergency Department Course and Treatment: [Patient was started on vancomycin and Unasyn IV.] Treatment Plan: [We will be admitted for IV antibiotics. General surgeon on-call Dr. Sherita castillo then will attempt to perform further I&D and hospitalist to admit patient] Disposition: [Admit] Impression: [Abscess soft tissue right thigh with cellulitis and failed outpatient therapy] This note was generated with Gaopengation software. It may contain incorrect words, spelling, and punctuation that were not noted in review of the chart prior to signing ED Disposition - Plan for ED Patient: Referrals: Richar Chris MD [Primary Care Provider] -
[2019-05-30] MEDS: Ketorolac 15 MG/ML Vial IV (15:36)
[2019-05-30] MEDS: 0.9% Normal Saline 1,000 ML 150 ML IV ×2 (15:37→23:11)
[2019-05-30 15:38] LABS: Anion Gap 3 (5-15); BUN 12 mg/dL (7-18); BUN/Creat Ratio 18.8 RATIO (10-20); Calcium,Total 9.2 mg/dL (8.5-10.1); Chloride 112 mmol/L (98-107); Creatinine, Serum 0.64 mg/dL (0.55-1.02); EST Glomerular Filtration Rate 113 mL/min (>60); Est Glom Filt Rate - Afr Amer 136 mL/min (>60); Estimated Creatinine Clearance 101.49 ml/min; Glucose 85 mg/dL (74-106); Potassium 4.1 mmol/L (3.5-5.1); Sodium Level 142 mmol/L (136-145)
--- NOTE | 2019-05-30 16:21 | PCM.CONS.GEN ---
Reason for Consult Date of Consultation: 05/30/19 History of Present Illness: The patient is a 34 year old F ends to the ER from senior living for a right posterior leg abscess she states she had for about 2 weeks, for last 2 days patient states she has been on Keflex but the erythema has gotten worse. Patient states she is got purulent yellow/clean greenish material draining from the wound. Patient states it is quite tender. Patient has had previous abscesses in the past and do not see any cultures listed. 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 Smoking Status: Current every day smoker - *Family History Maternal History Items: No pertinent history Review of Systems Constitutional: Denies: Anorexia Eyes: Denies: Blurred vision HEENT: Denies: Difficulty Swallowing Cardiovascular: Denies: Chest Pain Respiratory: Denies: Shortness of Breath Gastrointestinal: Denies: Abdominal Pain Genitourinary: Denies: Dysuria Skin: Reports: Wounds - Right posterior thigh Psychiatric: Denies: Depression Hematologic/ Lymphatic: Denies: Easy Bleeding - Physical Exam Vitals/I&O's: Vital Signs Temp Pulse Resp BP Pulse Ox 98.6 F 91 17 122/73 H 98 05/30/19 14:22 05/30/19 14:22 05/30/19 14:22 05/30/19 14:22 05/30/19 14:22 Oxygen Delivery Method Room Air Weight: 156 lb 9.6 oz Body Mass Index (BMI) 27.7 Intake and Output for Last 24 Hours 05/28/19 05/29/19 05/30/19 23:59 23:59 23:59 Intake Total / 5 Balance / General: Alert, Oriented x3, Cooperative HEENT: Atraumatic Lungs: Normal air movement Cardiovascular: Regular rate Abdomen: Soft, Non Tender, Non-Distended Extremities: - - Right posterior thigh: Necrotic area about 2 cm x 1 cm, no active drainage currently, erythema bright red about 10 cm in width by 8 cm in height with fainter erythema beyond that by about 5 cm. Laboratory Results 05/30/19 15:05: WBC 13.1 H, RBC 4.64, Hgb 12.7, Hct 40.1, MCV 86.4, MCH 27.4, MCHC 31.7 L, RDW Std Deviation 47.3 H, RDW Coeff of Tenisha 14.9 H, Plt Count 270, MPV 9.5, Immature Gran % (Auto) 0.500, Neut % (Auto) 67.1, Lymph % (Auto) 25.4, Alexander % (Auto) 5.7, Eos % (Auto) 0.9, Baso % (Auto) 0.4, Absolute Neuts (auto) 8.8 H, Absolute Lymphs (auto) 3.33, Nucleated RBC % 0 05/30/19 15:05: Sodium 142, Potassium 4.1, Chloride 112 H, Carbon Dioxide 27.0, Anion Gap 3 L, BUN 12, Creatinine 0.64, Estim Creat Clear Calc 101.49, Est GFR (MDRD) Af Amer 136, Est GFR (MDRD) Non-Af 113, BUN/Creatinine Ratio 18.8, Glucose 85, Calcium 9.2 05/30/19 15:05: Lactic Acid 1.0 Current Medications Sodium Chloride () 1,000 mls @ 150 mls/hr IV .Q6H40M SD Last Infusion: 05/30/19 15:39 Dose: 0 mls/hr Documented by: Vancomycin HCl (Vancomycin) 1,000 mg in 200 mls @ 200 mls/hr IV X1 ONE Stop: 05/30/19 16:29 Assessment/Plan 34-year-old female with posterior right thigh abscess 1. Discussed with patient plan doing I&D posterior right thigh abscess. There is a necrotic area of skin about 2 cm x 1 cm, CT lower extremity did show a fluid collection below. Patient states been draining purulent material. Patient has a leukocytosis of 13. Patient did have Keflex 2 days as an outpatient and the erythema got worse. Discussed the risk including but not limited to bleeding, infection, need for further debridement, etc. of the procedure patient was agreeable to proceed. Patient will get moderate sedation per ER physician. Sherita Diehl M.D. Pager: [phone] [facility] [address] [place] [address], [facility], [address] [place] [address] Office: [phone] Code Visit Inpatient E&M: 72670 Init Hosp L1
--- NOTE | 2019-05-30 16:25 | NURSING ---
MED SURG KORAM ABSCESS RT THIGH WITH CELLULITIS AND FAILED OUTPATIENT THEREPY
--- NOTE | 2019-05-30 16:42 | PCM.HP.STD ---
History of Present Illness Date of Admission: 05/30/19 Chief Complaint: pain and swelling of back of left leg The patient is a 34 year old F with a past medical history of IV drug abuse. She was [facility] from the local [facility] with a complaint of pain, swelling and redness at the back of her left thigh. davonte says she noticed it a few days ago, when she saw a small red spot at the back of her left thigh, which she thought was an ingrown hair. Redness subsequently expanded, and became swollen. She realised that the area ruptured, and drained pus. Swelling and pain however worsened, so she decided to come into the ED. She denied fever, but admitted to chills. Review of systems was otherwise negative. She was started on PO keflex in [facility], but this didnt help. She was subsequently put on bactrim, which she received one dose of, and decided to come into the ED today. Vitals in the ED wre stable, CBC showed wbc of 13.1, and BMP was unremarkable. LLE CT showed focal subcutaneous phlegnom in the posterior medial aspect of the proximal right thigh with overlying skin thickening, with no defintes abscess seen. She denied injecting into that area. She is being admitted to be managed for cellulitis of the LLE. 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 Lives: - - admitted from [facility] Smoking Status: Current every day smoker Alcohol: None Drugs: - - fentanyl IV - *Family History Maternal History Items: No pertinent history Review of Systems Constitutional: Denies: Chills, Fever, Weight Change Eyes: Denies: Blurred vision HEENT: Denies: Head Aches, Sinus Congestion, Sinus Drainage Cardiovascular: Denies: Chest Pain, Palpitations Respiratory: Denies: Cough, Shortness of Breath, Shortness of breath at rest, Shortness of breath upon exertion, Sputum production Gastrointestinal: Denies: Abdominal Pain, Nausea, Vomiting Genitourinary: Denies: Dysuria Musculoskeletal: Denies: Joint Pain, Joint Tenderness Skin: Reports: - - redness and swelling of back of left thigh Neurological: Denies: Numbness, Tingling, Focal weakness Psychiatric: Denies: Anxiety, Depression, Homicidal Ideations, Suicidal Ideations Hematologic/ Lymphatic: Denies: Easy Bruising, Easy Bleeding VTE Information - Inpt Only VTE Present on Admission: No VTE Pharm Prophylaxis ordered?: Yes - Physical Exam Vitals/I&O's: Vital Signs Temp Pulse Resp BP Pulse Ox 98.6 F 76 20 H 103/71 100 05/30/19 14:22 05/30/19 16:29 05/30/19 16:29 05/30/19 16:29 05/30/19 16:28 Oxygen Flow Rate (L/min) [4] 2 Oxygen Flow Rate (L/min) [3] 2 Oxygen Flow Rate (L/min) [2] 2 Oxygen Flow Rate (L/min) [1 ( 2 Initial Baseline)] Oxygen Delivery Method [4] Room Air Oxygen Delivery Method [3] Nasal Cannula Oxygen Delivery Method [2] Nasal Cannula Oxygen Delivery Method [1 ( Nasal Cannula Initial Baseline)] Oxygen Delivery Method Room Air Weight: 156 lb 9.6 oz Body Mass Index (BMI) 27.7 Intake and Output for Last 24 Hours 05/28/19 05/29/19 05/30/19 23:59 23:59 23:59 Intake Total / Balance / General: Alert, Oriented x3, Cooperative, No apparent distress HEENT: Atraumatic, PERRLA, EOMI, Normocephalic Oral: Moist Mucosa Neck: Supple, No JVD, Negative Carotid Bruits Lungs: Clear to auscultation, Normal air movement, No rhonchi, No wheeze, No rales Cardiovascular: Regular rate, Regular Rhythm, Normal S1, Normal S2, No murmurs Abdomen: Bowel Sounds Present, Soft, Non Tender, Non-Distended, No Hepato-splenomegaly Extremities: No clubbing, No cyanosis, No edema, Capillary Refill Less than 3 Seconds Skin: - - redness, tenderness and abscess over back of left thigh; erythematous area is extensive, over middle part of back of thigh. Abscess has open ulcer on surface, not oozing pus. has track delatorre over extremities Musculoskeletal: No Tenderness to Palpation of Joints or Extremities Lymphatic: No Cervical, Supraclavicular, or Inguinal Adenopathy Neurological: Cranial nerves II-XII grossly intact Psych/Mental Status: Normal Affect, Appropriate, Alert and oriented to time, place, person, mood and affect Laboratory Results 05/30/19 15:05: WBC 13.1 H, RBC 4.64, Hgb 12.7, Hct 40.1, MCV 86.4, MCH 27.4, MCHC 31.7 L, RDW Std Deviation 47.3 H, RDW Coeff of Tenisha 14.9 H, Plt Count 270, MPV 9.5, Immature Gran % (Auto) 0.500, Neut % (Auto) 67.1, Lymph % (Auto) 25.4, [place]t % (Auto) 5.7, Eos % (Auto) 0.9, Baso % (Auto) 0.4, Absolute Neuts (auto) 8.8 H, Absolute Lymphs (auto) 3.33, Nucleated RBC % 0 05/30/19 15:05: Sodium 142, Potassium 4.1, Chloride 112 H, Carbon Dioxide 27.0, Anion Gap 3 L, BUN 12, Creatinine 0.64, Estim Creat Clear Calc 101.49, Est GFR (MDRD) Af Amer 136, Est GFR (MDRD) Non-Af 113, BUN/Creatinine Ratio 18.8, Glucose 85, Calcium 9.2 05/30/19 15:05: Lactic Acid 1.0 Diagnostic Data Lower Extremity CT 05/30/19 14:58 IMPRESSION: Focal subcutaneous phlegmon in the posterior medial aspect of the proximal right thigh with overlying skin thickening. The focal area of phlegmon abuts the skin surface. No definite abscess is seen at this Electronically Signed: Eulogio Solares, at 15:42 EST , Service support , Current Medications Sodium Chloride () 1,000 mls @ 150 mls/hr IV .Q6H40M SD Last Infusion: 05/30/19 15:39 Dose: 0 mls/hr Documented by: Assessment/Plan 34 y/o admitted from [facility] o/a of redness and pain at back of LLE 1. Cellulitis of LLE with abscess formation failed outpatient therapy with Keflex and bactrim s/p I &D in the ED by general surgery CT of the LLE showed focal subcutaneous phlegmon in the posterior medial aspect of the proximal right thigh with overlying skin thickening, with area of phlegmon abutting skin surface. admit to [facility] was started on IV vancomycin and unasyn in the ED; will continue consult wound care 2. history of substance abuse Uses IV fentanyl. States she has not used it in about a week and a half because she is been in [facility]. Has track delatorre of extremities and states she also shoots up on her breasts. Opioid withdrawal protocol. Monitor Cina score. DVT Prophylaxis: Lovenox Code Visit Inpatient E&M: 01739 Init Hosp L3
--- NOTE | 2019-05-30 16:45 | PCM.OPRPT ---
Report of Operation Date of Procedure: 05/30/19 Pre-Operative Diagnosis: Right posterior thigh abscess Post-Operative Diagnosis: Same Surgery/Procedure Performed:: Incision and debridement of right posterior thigh abscess Type of Anesthesia:: MAC/Supplemental Anesthesiologist: Physician,CC - Dr. Quiles, ER physician Special Medications: Patient received Unasyn as well as vancomycin in the ER Specimen's removed: Culture for anaerobic and aerobic Estimated Blood Loss (mL): MINIMAL Description of Procedure: Informed consent was obtained. Conscious sedation was given with propofol by Dr. Quiles, ER physician. The right posterior thigh prepped draped in usual sterile fashion with Betadine. 11 blade scalpel was used to incise the area of the abscess. The necrotic tissue was removed. Cultures were taken for anaerobic and aerobic of the purulent material. Patient had only about 5 cc of purulent material. The loculations were broke up in the cavity. Incision was about 2 cm x 1 cm with a depth of about 2 cm. Cavity was irrigated with saline. Cavity was packed with wet-to-dry dressings. Patient tolerated procedure well. - Complications None Code Visit 10xxx: 27637 Drainage of skin abscess
[2019-05-30] MEDS: Propofol 200 MG/20 ML Vial IV BOLUS (16:48)
[2019-05-30] MEDS: Vancomycin IV 1,000 MG/200 ML BAG 200 MG IV (17:09)
--- NOTE | 2019-05-30 17:59 | PCM.RX.CS ---
Consult Pharmacy has been consulted to manage selected antiobiotic: Vancomycin Type of Consult: New start Suspected Infection: Skin/Soft tissue Prior Doses of Antibiotics Received/Current Regimen: ED DOSE OF VANCOMYCIN 1000MG IC GIVEN 05/30 @ 1709 Labs: Sodium 142 mmol/L (136-145) 05/30/19 15:05 Potassium 4.1 mmol/L (3.5-5.1) 05/30/19 15:05 Chloride 112 mmol/L (98-107) H 05/30/19 15:05 Carbon Dioxide 27.0 mmol/L (21.0-32.0) 05/30/19 15:05 Anion Gap 3 (5-15) L 05/30/19 15:05 BUN 12 mg/dL (7-18) 05/30/19 15:05 Creatinine 0.64 mg/dL (0.55-1.02) 05/30/19 15:05 Est GFR (MDRD) Af Amer 136 mL/min (>60) 05/30/19 15:05 Est GFR (MDRD) Non-Af 113 mL/min (>60) 05/30/19 15:05 BUN/Creatinine Ratio 18.8 RATIO (10-20) 05/30/19 15:05 Glucose 85 mg/dL (74-106) 05/30/19 15:05 Weight used for dosin.9 kg Estimated Creatinine Clearance: 115 Goal Trough: 15-20 mcg/mL Pharmacy Plan for Drug Dosin. Will start 750mg Q8H based on weight of 69.9kg and CrCl 115 ml/min (using adjusted body weight) 2. 1st dose starting 8 hours after ED dose 3. Trough scheduled prior to 4th dose per policy 4. Pharmacy Service will continue to monitor and adjust dosing as required. Labs to be done on [date and time ordered]: 05/31/2019 @ 1633
[2019-05-30] MEDS: Ibuprofen 400 MG Tablet PO (19:07)
--- NOTE | 2019-05-30 23:39 | NURSING ---
This RN entered room, pt ambulating in room naked wanting to take a shower. PT had removed own dressing and disconnected her own IV. PT was assisted by SEPARATIONS SCIENTIST to get cleaned up before bed. Pt then presented SEPARATIONS SCIENTIST with crafting box with jewelry and other paraphernalia. Box placed in biohazard bag and locked in med room. PT out into hallway in personal clothing and sent back into room. PT tearful stating she has done nothing wrong and refusing to shower until comes back. PT continued to cry and state she has done nothing wrong. HRO officer to room and secured patients belongs. to see HRO officer before returning to patient room. Patient and told they are not to close room door, patient is not allowed into hallway, remove dressing to R thigh, not to shower without Dr order or mess with IV by nursing staff.
[2019-05-31 05:34] VITALS: BP 122/78; PULSE 83; RESP 16; TEMP 37.2; O2SAT 97
[2019-05-31] MEDS: Ibuprofen 400 MG Tablet PO (05:39)
[2019-05-31 05:46] LABS: Absolute Lymphocyte Count 3.62 X10^3/uL (0.83-4.51); Basophil# 0.06 X10^3/uL; Basophil% 0.5 % (0-1); Eosinophil# 0.12 X10^3/uL; Eosinophils% 0.9 % (0-5); Hematocrit 35.4 % (37-47); Hemoglobin 11.3 g/dL (12.0-15.0); Lymphocyte # 3.62 X10^3/ul (4.0); Lymphocyte % 28.6 % (19-41); Mean Corp Hgb Conc 31.9 g/dL (32-36); Mean Corpuscular Volume 87.6 fL (81-99); Monocyte# 0.79 X10^3/uL; Monocyte% 6.2 % (0-10); NRBC Flagged by Analyzer 0 % (0-5); Neutrophil # 7.98 X10^3/uL (2.7-7.7); Neutrophil % 63.1 % (47-70); Platelet Count 259 K/mm3 (150-450); RBC Distribution Width CV 14.6 % (11.6-14.6); RBC Distribution Width SD 47.3 fl (35.1-43.9); Red Blood Count 4.04 M/mm3 (4.2-5.4); White Blood Count 12.7 K/mm3 (4.4-11.0)
[2019-05-31 06:03] LABS: Anion Gap 4 (5-15); BUN 10 mg/dL (7-18); Calcium,Total 8.4 mg/dL (8.5-10.1); Chloride 112 mmol/L (98-107); Creatinine, Serum 0.72 mg/dL (0.55-1.02); EST Glomerular Filtration Rate 99 mL/min (>60); Est Glom Filt Rate - Afr Amer 119 mL/min (>60); Estimated Creatinine Clearance 90.21 ml/min; Glucose 97 mg/dL (74-106); Potassium 3.5 mmol/L (3.5-5.1); Sodium Level 142 mmol/L (136-145)
--- NOTE | 2019-05-31 08:26 | PN.SURG_ITS ---
Subjective: Patient states the right posterior thigh does feel better after the incision and debridement. White blood count is down to 12.7 from 13 - Physical Exam Vitals/I&O's: Vital Signs Temp Pulse Resp BP Pulse Ox 98.9 F 83 16 122/78 H 97 05/31/19 05:34 05/31/19 05:34 05/31/19 05:34 05/31/19 05:34 05/31/19 05:34 Oxygen Flow Rate (L/min) [4] 2 Oxygen Flow Rate (L/min) [3] 2 Oxygen Flow Rate (L/min) [2] 2 Oxygen Flow Rate (L/min) [1 ( 2 Initial Baseline)] Oxygen Delivery Method [4] Room Air Oxygen Delivery Method [3] Nasal Cannula Oxygen Delivery Method [2] Nasal Cannula Oxygen Delivery Method [1 ( Nasal Cannula Initial Baseline)] Oxygen Delivery Method Room Air Weight: 154 lb Body Mass Index (BMI) 27.3 Intake and Output for Last 24 Hours 05/29/19 05/30/19 05/31/19 23:59 23:59 23:59 Intake Total 934.0 / 934.0 1047.0 / 1047.0 Balance 934.0 / 934.0 1047.0 / 1047.0 General: Alert, Oriented x3, Cooperative, No apparent distress Lungs: Normal air movement Cardiovascular: Regular rate Abdomen: Soft, Non Tender, Non-Distended Extremities: - - Right posterior thigh: Wound healing well, good granulation tissue, decrease in erythema, tender palpation Laboratory Results 05/30/19 15:05: WBC 13.1 H, RBC 4.64, Hgb 12.7, Hct 40.1, MCV 86.4, MCH 27.4, MCHC 31.7 L, RDW Std Deviation 47.3 H, RDW Coeff of Tenisha 14.9 H, Plt Count 270, MPV 9.5, Immature Gran % (Auto) 0.500, Neut % (Auto) 67.1, Lymph % (Auto) 25.4, [place] % (Auto) 5.7, Eos % (Auto) 0.9, Baso % (Auto) 0.4, Absolute Neuts (auto) 8.8 H, Absolute Lymphs (auto) 3.33, Nucleated RBC % 0 05/30/19 15:05: Sodium 142, Potassium 4.1, Chloride 112 H, Carbon Dioxide 27.0, Anion Gap 3 L, BUN 12, Creatinine 0.64, Estim Creat Clear Calc 101.49, Est GFR (MDRD) Af Amer 136, Est GFR (MDRD) Non-Af 113, BUN/Creatinine Ratio 18.8, Glucose 85, Calcium 9.2 05/30/19 15:05: Lactic Acid 1.0 05/31/19 05:31: WBC 12.7 H, RBC 4.04 L, Hgb 11.3 L, Hct 35.4 L, MCV 87.6, MCH 28.0, MCHC 31.9 L, RDW Std Deviation 47.3 H, RDW Coeff of Tenisha 14.6, Plt Count 259, MPV 9.0, Immature Gran % (Auto) 0.700, Neut % (Auto) 63.1, Lymph % (Auto) 28.6, [place] % (Auto) 6.2, Eos % (Auto) 0.9, Baso % (Auto) 0.5, Absolute Neuts (auto) 8.0 H, Absolute Lymphs (auto) 3.62, Nucleated RBC % 0 05/31/19 05:31: Sodium 142, Potassium 3.5, Chloride 112 H, Carbon Dioxide 26.0, Anion Gap 4 L, BUN 10, Creatinine 0.72, Estim Creat Clear Calc 90.21, Est GFR (MDRD) Af Amer 119, Est GFR (MDRD) Non-Af 99, BUN/Creatinine Ratio 14.0, Glucose 97, Calcium 8.4 L Current Medications Acetaminophen (Tylenol) 650 mg PO Q6H PRN PRN PRN Reason: Pain Score 1-10/Temp > 100.7 F Enoxaparin Sodium (Lovenox) 40 mg SC DAILY [facility] Glucagon () 1 mg IM .X1 PRN PRN Reason: Hypoglycemia Sodium Chloride () 1,000 mls @ 150 mls/hr IV .Q6H40M [facility] Last Infusion: 05/31/19 06:14 Dose: 150 mls/hr Documented by: Ampicillin Sodium/Sulbactam (Sodium 3 gm/ Sodium Chloride) 112 mls @ 150 mls/hr IV Q6 [facility] Last Infusion: 05/31/19 06:14 Dose: Infused Documented by: Vancomycin IV Pharmacy to Dose (1 ea/ Sodium Chloride) 500 mls @ 250 mls/hr IV X1 PRN; Protocol PRN Reason: Rx to Dose Dextrose (Dextrose 10%-Water) 250 mls @ 999 mls/hr IV .Q16M PRN; Protocol PRN Reason: HYPOGLYCEMIA Vancomycin HCl 750 mg/ Sodium (Chloride) 265 mls @ 250 mls/hr IV Q8H [facility] Last Infusion: 05/31/19 01:40 Dose: Infused Documented by: Ibuprofen (Motrin) 400 mg PO Q4H PRN PRN PRN Reason: Pain Score 1-10/Temp > 100.7 F Last Admin: 05/31/19 05:39 Dose: 400 mg Documented by: Ondansetron HCl (Zofran) 4 mg IV Q8H PRN PRN PRN Reason: NAUSEA/VOMITING Sodium Chloride () 10 - 40 ml IV UD PRN PRN Reason: SALINE FLUSH Medical Necessity - Tobacco Use Smoking Status: Current every day smoker Tobacco Use: Cigarettes Assessment/Plan 34-year-old female with posterior right thigh abscess 1. Right posterior thigh abscess erythema improving, good granulation tissue continue wet-to-dry packing 2. Continue IV antibiotics today Sherita Diehl M.D. Pager: [phone] [facility] [address] [place] [address], [facility], [address] [place] [address] Office: [phone]
[2019-05-31] MEDS: Enoxaparin 40 MG/0.4 ML Syringe SC (08:40)
[2019-05-31] MEDS: 0.9% Normal Saline 1,000 ML 150 ML IV ×2 (08:40→20:42)
[2019-05-31 08:46] VITALS: BP 122/76; PULSE 100; RESP 18; TEMP 37.2; O2SAT 97
--- NOTE | 2019-05-31 09:32 | PCM.PN.HOSP ---
Subjective: Patient seen and examined. She states fever and chills are much better today. Pain is also well controlled. She had I&D done in the ED on admission yesterday with drainage of about 5 cc of purulent fluid. She is on IV vancomycin and Unasyn. Labs and vitals reviewed. She has remained afebrile and WBC is down to 12.7. Vitals/I&O's: Vital Signs Temp Pulse Resp BP Pulse Ox 99.0 F 100 18 122/76 H 97 05/31/19 08:46 05/31/19 08:46 05/31/19 08:46 05/31/19 08:46 05/31/19 08:46 Oxygen Flow Rate (L/min) [4] 2 Oxygen Flow Rate (L/min) [3] 2 Oxygen Flow Rate (L/min) [2] 2 Oxygen Flow Rate (L/min) [1 ( 2 Initial Baseline)] Oxygen Delivery Method [4] Room Air Oxygen Delivery Method [3] Nasal Cannula Oxygen Delivery Method [2] Nasal Cannula Oxygen Delivery Method [1 ( Nasal Cannula Initial Baseline)] Oxygen Delivery Method Room Air Weight: 154 lb Body Mass Index (BMI) 27.3 Intake and Output for Last 24 Hours 05/29/19 05/30/19 05/31/19 23:59 23:59 23:59 Intake Total 934.0 / 934.0 1379.5 / 1379.5 Balance 934.0 / 934.0 1379.5 / 1379.5 General: Alert, Oriented x3, Cooperative, No apparent distress HEENT: Atraumatic, PERRLA, EOMI, Normocephalic Oral: Moist Mucosa Neck: Supple, No JVD, Negative Carotid Bruits Lungs: Clear to auscultation, Normal air movement, No rhonchi, No wheeze, No rales Cardiovascular: Regular rate, Regular Rhythm, Normal S1, Normal S2, No murmurs Abdomen: Bowel Sounds Present, Soft, Non Tender, Non-Distended, No Hepato-splenomegaly Extremities: No clubbing, No cyanosis, No edema, Capillary Refill Less than 3 Seconds Skin: - -redness and tenderness have improved; has open ulcer ~ 5x4cm on posterior right thigh, with some slough in the floor of the wound. has track delatorre over extremities Musculoskeletal: No Tenderness to Palpation of Joints or Extremities Lymphatic: No Cervical, Supraclavicular, or Inguinal Adenopathy Neurological: Cranial nerves II-XII grossly intact Psych/Mental Status: Normal Affect, Appropriate, Alert and oriented to time, place, person, mood and affect Laboratory Results 05/30/19 15:05: WBC 13.1 H, RBC 4.64, Hgb 12.7, Hct 40.1, MCV 86.4, MCH 27.4, MCHC 31.7 L, RDW Std Deviation 47.3 H, RDW Coeff of Tenisha 14.9 H, Plt Count 270, MPV 9.5, Immature Gran % (Auto) 0.500, Neut % (Auto) 67.1, Lymph % (Auto) 25.4, [place] % (Auto) 5.7, Eos % (Auto) 0.9, Baso % (Auto) 0.4, Absolute Neuts (auto) 8.8 H, Absolute Lymphs (auto) 3.33, Nucleated RBC % 0 05/30/19 15:05: Sodium 142, Potassium 4.1, Chloride 112 H, Carbon Dioxide 27.0, Anion Gap 3 L, BUN 12, Creatinine 0.64, Estim Creat Clear Calc 101.49, Est GFR (MDRD) Af Amer 136, Est GFR (MDRD) Non-Af 113, BUN/Creatinine Ratio 18.8, Glucose 85, Calcium 9.2 05/30/19 15:05: Lactic Acid 1.0 05/31/19 05:31: WBC 12.7 H, RBC 4.04 L, Hgb 11.3 L, Hct 35.4 L, MCV 87.6, MCH 28.0, MCHC 31.9 L, RDW Std Deviation 47.3 H, RDW Coeff of Tenisha 14.6, Plt Count 259, MPV 9.0, Immature Gran % (Auto) 0.700, Neut % (Auto) 63.1, Lymph % (Auto) 28.6, [place] % (Auto) 6.2, Eos % (Auto) 0.9, Baso % (Auto) 0.5, Absolute Neuts (auto) 8.0 H, Absolute Lymphs (auto) 3.62, Nucleated RBC % 0 05/31/19 05:31: Sodium 142, Potassium 3.5, Chloride 112 H, Carbon Dioxide 26.0, Anion Gap 4 L, BUN 10, Creatinine 0.72, Estim Creat Clear Calc 90.21, Est GFR (MDRD) Af Amer 119, Est GFR (MDRD) Non-Af 99, BUN/Creatinine Ratio 14.0, Glucose 97, Calcium 8.4 L Current Medications Acetaminophen (Tylenol) 650 mg PO Q6H PRN PRN PRN Reason: Pain Score 1-10/Temp > 100.7 F Enoxaparin Sodium (Lovenox) 40 mg SC DAILY [facility] Last Admin: 05/31/19 08:40 Dose: 40 mg Documented by: Glucagon () 1 mg IM .X1 PRN PRN Reason: Hypoglycemia Sodium Chloride () 1,000 mls @ 150 mls/hr IV .Q6H40M [facility] Last Infusion: 05/31/19 08:42 Dose: 0 mls/hr Documented by: Ampicillin Sodium/Sulbactam (Sodium 3 gm/ Sodium Chloride) 112 mls @ 150 mls/hr IV Q6 [facility] Last Infusion: 05/31/19 06:14 Dose: Infused Documented by: Vancomycin IV Pharmacy to Dose (1 ea/ Sodium Chloride) 500 mls @ 250 mls/hr IV X1 PRN; Protocol PRN Reason: Rx to Dose Dextrose (Dextrose 10%-Water) 250 mls @ 999 mls/hr IV .Q16M PRN; Protocol PRN Reason: HYPOGLYCEMIA Vancomycin HCl 750 mg/ Sodium (Chloride) 265 mls @ 250 mls/hr IV Q8H [facility] Last Admin: 05/31/19 08:40 Dose: 250 mls/hr Documented by: Ibuprofen (Motrin) 400 mg PO Q4H PRN PRN PRN Reason: Pain Score 1-10/Temp > 100.7 F Last Admin: 05/31/19 05:39 Dose: 400 mg Documented by: Ondansetron HCl (Zofran) 4 mg IV Q8H PRN PRN PRN Reason: NAUSEA/VOMITING Sodium Chloride () 10 - 40 ml IV UD PRN PRN Reason: SALINE FLUSH STROKE Vital Signs/Narrative: Vital Signs Temp Pulse Resp BP Pulse Ox 05/31/19 08:46 99.0 F 100 18 122/76 H 97 05/31/19 05:34 98.9 F 83 16 122/78 H 97 Medical Necessity - Tobacco Use Smoking Status: Current every day smoker Tobacco Use: Cigarettes Assessment/Plan 34 y/o [facility] o/a of redness and pain at back of LLE 1. Cellulitis of RLE with abscess formation failed outpatient therapy with Keflex and bactrim s/p I &D in the ED by general surgery CT of the LLE showed focal subcutaneous phlegmon in the posterior medial aspect of the proximal right thigh with overlying skin thickening, with area of phlegmon abutting skin surface. on IV vancomycin and unasyn. Awaiting wound cultures wouond care on board 2. history of substance abuse Uses IV fentanyl. States she has not used it in about a week and a half because she is been in [facility]. on opioid withdrawal protocol with subutex Monitor Cina score. DVT Prophylaxis: Lovenox Code Visit Inpatient E&M: 48573 Subs Hosp L2
--- NOTE | 2019-05-31 10:44 | CASEMGMT ---
ALEJANDRA CM chart review: Patient was admitted from residential for right posterior thigh abscess. Patient had I&D completed in ER by surgeon. Patient currently has wet to dry dressing to area with changes TID. Patient is currently on IV ATB with wound cultures pending. Patient lives with and has PCP listed as Dr. Chris. Patient is on gong and is to discharge back to residential when medically ready.
--- NOTE | 2019-05-31 13:57 | CASEMGMT ---
Social Work Note MEERA reviewed chart, pt at [facility] from [place] and has history of substance abuse. SW met with pt and introduced self and role at [facility]. Pt is alert and orientated x3. Pt has guest present in room, pt gave this worker permission to speak to her in front of her guest. Pt confirms that she is at [facility] and [facility]. Pt denied any health, does confirm she uses substances. Pt stated that she is not interested in resources at this time for substance abuse, does state she is already linked up with a counselor. Hilary Jung [employer]OSPAT[employer]TR[employer]OR [employer], IRON [employer]STER
--- NOTE | 2019-05-31 14:18 | NURSING ---
Update given to nurse at [facility].
[2019-05-31] MEDS: Acetaminophen 325 MG Tablet 650 MG PO ×2 (14:37→20:58)
[2019-05-31 14:45] VITALS: BP 117/64; PULSE 79; RESP 16; TEMP 36.4; O2SAT 96
[2019-05-31 17:52] LABS: Vancomycin, Trough Level 6.8 ug/mL (5.0-15.0)
--- NOTE | 2019-05-31 18:03 | NURSING ---
Throughout the course of this nurses' shift, patient has been back and forth to bathroom, all over room, picking at dressing and attempting to repack wound herself. She has also been removing her primary IV line from the loop after being told several times to leave the IV and the wound/dressing alone. Dr. Samano was made aware.
--- NOTE | 2019-05-31 18:39 | PCM.RX.CS ---
Consult Pharmacy has been consulted to manage selected antiobiotic: Vancomycin Type of Consult: Follow-up Suspected Infection: Skin/Soft tissue Prior Doses of Antibiotics Received/Current Regimen: Current regimen is 750mg IV q8h Labs: Sodium 142 mmol/L (136-145) 05/31/19 05:31 Potassium 3.5 mmol/L (3.5-5.1) 05/31/19 05:31 Chloride 112 mmol/L (98-107) H 05/31/19 05:31 Carbon Dioxide 26.0 mmol/L (21.0-32.0) 05/31/19 05:31 Anion Gap 4 (5-15) L 05/31/19 05:31 BUN 10 mg/dL (7-18) 05/31/19 05:31 Creatinine 0.72 mg/dL (0.55-1.02) 05/31/19 05:31 Est GFR (MDRD) Af Amer 119 mL/min (>60) 05/31/19 05:31 Est GFR (MDRD) Non-Af 99 mL/min (>60) 05/31/19 05:31 BUN/Creatinine Ratio 14.0 RATIO (10-20) 05/31/19 05:31 Glucose 97 mg/dL (74-106) 05/31/19 05:31 Vancomycin Trough 6.8 ug/mL (5.0-15.0) 05/31/19 16:42 Microbiology: Microbiology 05/30/19 17:00 Boil - Leg Gram Stain - Final 05/30/19 17:00 Boil - Leg Wound Culture - Preliminary Staphylococcus aureus Weight used for dosin.9 kg Estimated Creatinine Clearance: 102 ml/min Goal Trough: 15-20 mcg/mL Pharmacy Plan for Drug Dosing: The vancomycin trough level drawn at 16:42 today (8 hours after the previous dose was given) came back as 6.8 mg/L, which is short of the goal range. Tonight's 750mg dose at 17:00 was already given so will increase the next dose to 1000mg IV q8h starting tonight at at midnight. Recheck the trough before the 4th new dose tomorrow night. The patient's CrCl of 102 ml/min was calculated using an adjusted body weight of 59.4kg. Pharmacy Service will continue to monitor and adjust dosing as required. Follow-Up Labs: Trough Vancomycin Labs to be done on [date and time ordered]: 06/01/19 23:30
[2019-05-31 20:45] VITALS: BP 119/84; PULSE 75; RESP 16; TEMP 36.8; O2SAT 100
[2019-06-01] MEDS: Ibuprofen 400 MG Tablet PO (00:29)
[2019-06-01] MEDS: Vancomycin IV 1,000 MG/200 ML BAG 200 MG IV ×2 (00:31→08:01)
[2019-06-01 02:46] VITALS: BP 116/99; PULSE 73; RESP 16; TEMP 36.7; O2SAT 97
[2019-06-01] MEDS: Ketorolac 15 MG/ML Vial IV (02:48)
[2019-06-01] MEDS: 0.9% Saline Lock 10 ML Syringe IV (02:48)
[2019-06-01] MEDS: Acetaminophen 325 MG Tablet 650 MG PO (04:35)
[2019-06-01] MEDS: 0.9% Normal Saline 1,000 ML 150 ML IV (05:12)
[2019-06-01 07:24] LABS: Absolute Lymphocyte Count 3.34 X10^3/uL (0.83-4.51); Absolute Neutrophil Count 2.4 X10^3/uL (2.0-7.7); Basophil# 0.05 X10^3/uL; Basophil% 0.8 % (0-1); Eosinophil# 0.28 X10^3/uL; Eosinophils% 4.3 % (0-5); Hematocrit 32.9 % (37-47); Hemoglobin 10.6 g/dL (12.0-15.0); Lymphocyte # 3.34 X10^3/ul (4.0); Lymphocyte % 50.8 % (19-41); Mean Corp Hgb Conc 32.2 g/dL (32-36); Mean Corpuscular Hgb 27.7 pg (27.0-32.0); Mean Corpuscular Volume 86.1 fL (81-99); Mean Platelet Vol. 8.9 fl (6.2-12.0); Monocyte# 0.47 X10^3/uL; Monocyte% 7.2 % (0-10); NRBC Flagged by Analyzer 0 % (0-5); Neutrophil # 2.39 X10^3/uL (2.7-7.7); Neutrophil % 36.3 % (47-70); Platelet Count 236 K/mm3 (150-450); RBC Distribution Width CV 14.3 % (11.6-14.6); RBC Distribution Width SD 44.4 fl (35.1-43.9); Red Blood Count 3.82 M/mm3 (4.2-5.4); White Blood Count 6.6 K/mm3 (4.4-11.0)
[2019-06-01 08:16] LABS: Anion Gap 5 (5-15); BUN 8 mg/dL (7-18); BUN/Creat Ratio 16.6 RATIO (10-20); Calcium,Total 8.4 mg/dL (8.5-10.1); Chloride 109 mmol/L (98-107); Creatinine, Serum 0.48 mg/dL (0.55-1.02); EST Glomerular Filtration Rate 156 mL/min (>60); Est Glom Filt Rate - Afr Amer 189 mL/min (>60); Estimated Creatinine Clearance 135.32 ml/min; Glucose 87 mg/dL (74-106); Potassium 4.1 mmol/L (3.5-5.1); Sodium Level 142 mmol/L (136-145)
--- NOTE | 2019-06-01 08:39 | NURSING ---
Primary RN informed of questionable behavior visualized on the monitor. Primary RN requesting MOTEL KEEPER changes the bed linens. MOTEL KEEPER called and informed of this request, this nurse advising 2 insurance biller go in together. [phone] security called, requested presence on unit.
--- NOTE | 2019-06-01 08:51 | PN.SURG_ITS ---
Subjective: improving per pt - Physical Exam Vitals/I&O's: Vital Signs Temp Pulse Resp BP Pulse Ox 98.0 F 73 16 116/99 H 97 06/01/19 02:46 06/01/19 02:46 06/01/19 02:46 06/01/19 02:46 06/01/19 02:46 Oxygen Flow Rate (L/min) [4] 2 Oxygen Flow Rate (L/min) [3] 2 Oxygen Flow Rate (L/min) [2] 2 Oxygen Flow Rate (L/min) [1 ( 2 Initial Baseline)] Oxygen Delivery Method [4] Room Air Oxygen Delivery Method [3] Nasal Cannula Oxygen Delivery Method [2] Nasal Cannula Oxygen Delivery Method [1 ( Nasal Cannula Initial Baseline)] Oxygen Delivery Method Room Air Weight: 154 lb Body Mass Index (BMI) 27.3 Intake and Output for Last 24 Hours 05/30/19 05/31/19 06/01/19 23:59 23:59 23:59 Intake Total 934.0 / 934.0 4766.0 / 5566.0 2561.5 / 2561.5 Balance 934.0 / 934.0 4766.0 / 5566.0 2561.5 / 2561.5 Microbiology Past 72 Hours 05/30/19 17:00 Boil - Leg Gram Stain - Final 05/30/19 17:00 Boil - Leg Wound Culture - Final Meth. resistant Staph. aureus Laboratory Results 05/31/19 16:42: Vancomycin Trough 6.8 06/01/19 07:03: WBC 6.6, RBC 3.82 L, Hgb 10.6 L, Hct 32.9 L, MCV 86.1, MCH 27.7, MCHC 32.2, RDW Std Deviation 44.4 H, RDW Coeff of Tenisha 14.3, Plt Count 236, MPV 8.9, Immature Gran % (Auto) 0.600, Neut % (Auto) 36.3 L, Lymph % (Auto) 50.8 H, [place] % (Auto) 7.2, Eos % (Auto) 4.3, Baso % (Auto) 0.8, Absolute Neuts (auto) 2.4, Absolute Lymphs (auto) 3.34, Nucleated RBC % 0 06/01/19 07:03: Sodium 142, Potassium 4.1, Chloride 109 H, Carbon Dioxide 28.0, Anion Gap 5, BUN 8, Creatinine 0.48 L, Estim Creat Clear Calc 135.32, Est GFR (MDRD) Af Amer 189, Est GFR (MDRD) Non-Af 156, BUN/Creatinine Ratio 16.6, Glucose 87, Calcium 8.4 L Current Medications Acetaminophen (Tylenol) 650 mg PO Q6H PRN PRN PRN Reason: Pain Score 1-10/Temp > 100.7 F Last Admin: 06/01/19 04:35 Dose: 650 mg Documented by: Enoxaparin Sodium (Lovenox) 40 mg SC DAILY [facility] Last Admin: 05/31/19 08:40 Dose: 40 mg Documented by: Glucagon () 1 mg IM .X1 PRN PRN Reason: Hypoglycemia Sodium Chloride () 1,000 mls @ 150 mls/hr IV .Q6H40M [facility] Last Infusion: 06/01/19 08:06 Dose: 0 mls/hr Documented by: Ampicillin Sodium/Sulbactam (Sodium 3 gm/ Sodium Chloride) 112 mls @ 150 mls/hr IV Q6 [facility] Last Infusion: 06/01/19 05:57 Dose: Infused Documented by: Vancomycin IV Pharmacy to Dose (1 ea/ Sodium Chloride) 500 mls @ 250 mls/hr IV X1 PRN; Protocol PRN Reason: Rx to Dose Dextrose (Dextrose 10%-Water) 250 mls @ 999 mls/hr IV .Q16M PRN; Protocol PRN Reason: HYPOGLYCEMIA Vancomycin HCl (Vancomycin) 1,000 mg in 200 mls @ 200 mls/hr IV Q8H [facility] Last Admin: 06/01/19 08:01 Dose: 200 mls/hr Documented by: Ibuprofen (Motrin) 400 mg PO Q4H PRN PRN PRN Reason: Pain Score 1-10/Temp > 100.7 F Last Admin: 06/01/19 00:29 Dose: 400 mg Documented by: Ondansetron HCl (Zofran) 4 mg IV Q8H PRN PRN PRN Reason: NAUSEA/VOMITING Sodium Chloride () 10 - 40 ml IV UD PRN PRN Reason: SALINE FLUSH Last Admin: 06/01/19 02:48 Dose: 10 ml Documented by: Medical Necessity - Tobacco Use Smoking Status: Current every day smoker Tobacco Use: Cigarettes Assessment/Plan 34-year-old female with posterior right thigh abscess 1. Right posterior thigh abscess erythema improving, good granulation tissue continue wet-to-dry packing 2. can be d/c with doxy 100 mg PO BID, f/u in the office 06/03 at 8:30am Sherita Diehl M.D. Pager: [phone] [facility] [address] [place] [address], [facility], [address] [place] [address] Office: [phone] Code Visit Inpatient E&M: 72883 Subs Hosp L1
--- NOTE | 2019-06-01 09:05 | DCINST_ITS ---
Discharge Diet: No Restrictions Discharge Activity: May Shower Call your doctor if your incision/area has: Continuous Slow Oozing, Sudden Increased Bleeding, Increased Pain/ Swelling, Increased Redness, Foul Smelling Discharge, Swelling at the incision site Call your doctor if you observe: Fever of 101 or Higher Change Dressing in (Days):: 0 Cleanse incision/area with: Normal Saline Additional Dressing/Incision Instructions:: Removal of packing. New sterile saline to rinse/irrigate the wound about 10 cc. Change packing to the right posterior thigh every 8 hours with a wet-to-dry dressing. Take 4 x 4 gauze into a single layer soak with sterile saline, squeeze to remove as much fluid as possible. Packed this into the wound remove any excess packing. The packing should not be on the normal skin and should only be in the wound. Cover with 4 x 4 and ABD and use Kerlix to secure Allergies/Adverse Reactions: Allergies No Known Allergies Allergy (Verified 05/30/19 14:22) Medications to take at Discharge Smz/Tmp Ds [Bactrim Ds] 1 tab PO BID 05/30/19 Primary Care Physician: Richar Chris MD [Primary Care Provider] - Test Results: Test results from this visit will be discussed in further detail at your follow- up appointment, if applicable. Please Follow Up With: Sherita Diehl MD - After 5:00 and on the weekends call [phone] When: 06/03/2019 at 8:30 aM appointment scheduled?office number is [phone] Proposed Discharge Date: 06/01/19
--- NOTE | 2019-06-01 09:32 | PCA ---
Went into patients room with another intern architect to go change patient bed linens. patient was sitting in recliner. When getting gown on I told patient that we were going to change her linens on her bed so she has clean bed to crawl into after shower. She said that she just made her bed the way she likes it. I told her we will make it back the way she has it that she has a wound that we should change it to keep wound clean..,She said she was fine then as long as we made it the way she likes it. Before striping her bed we had noticed she quickly grabbed the pillow case that was on her pillow and took it into the bathroom and shut her door. Then she came out and sat at the table by window while we made her bed. After we were finished we told the charge nurse and security intern that was on the floor at this time.
--- NOTE | 2019-06-01 09:43 | DCINST_ITS ---
You will use the following diet at home:: Cardiac Your food should be the consistency of: Regular Your liquids should be the consistency of: Regular/Thin Discharge Activity: Return to Normal Activity, May Shower Weight Bearing Status: Weight bearing as tolerated Call your doctor if your incision/area has: Continuous Slow Oozing, Sudden Increased Bleeding, Increased Pain/ Swelling, Increased Redness, Foul Smelling Discharge, Swelling at the incision site Call your doctor if you observe: Fever of 101 or Higher, Uncontrolled pain Change Dressing in (Days):: 0 Cleanse incision/area with: Normal Saline Additional Dressing/Incision Instructions:: Removal of packing. New sterile saline to rinse/irrigate the wound about 10 cc. Change packing to the right posterior thigh every 8 hours with a wet-to-dry dressing. Take 4 x 4 gauze into a single layer soak with sterile saline, squeeze to remove as much fluid as possible. Packed this into the wound remove any excess packing. The packing should not be on the normal skin and should only be in the wound. Cover with 4 x 4 and ABD and use Kerlix to secure Allergies/Adverse Reactions: Allergies No Known Allergies Allergy (Verified 05/30/19 14:22) Medications to take at Discharge Smz/Tmp Ds [Bactrim Ds] 1 tab PO BID 05/30/19 Doxycycline 100 mg PO BID #20 cap 06/01/19 Ibuprofen [Motrin] 400 mg PO Q4H PRN PRN #20 tab 06/01/19 The following prescriptions were given: Doxycycline 100 mg PO BID #20 cap Transmission Status: Received by [facility] [place] #30 Ibuprofen [Motrin] 400 mg PO Q4H PRN PRN #20 tab PRN Reason: Pain Score 1-10/Temp > 100.7 F Transmission Status: Received by [facility] [place] #30 Primary Care Physician: Richar Chris MD [Primary Care Provider] - Please follow up with your Primary Care Physician in: one week Test Results: Test results from this visit will be discussed in further detail at your follow- up appointment, if applicable. Please Follow Up With: Sherita Diehl MD - After 5:00 and on the weekends call [phone] When: 06/03/2019 at 8:30 aM appointment scheduled?office number is [phone] Proposed Discharge Date: 06/01/19
--- NOTE | 2019-06-01 09:45 | PCM.DC.SUM ---
Discharge Date and Diagnosis Date of Admission: 05/30/19 Date of Discharge: 06/01/19 - Primary Discharge Diagnosis cellulitis and abscess of the posterior right thigh - Secondary Discharge Diagnosis Chronic Problems OPIOID ADDICT (Chronic) Hepatitis C virus carrier state (Chronic) Previous section (Chronic) Previous section complicating (Chronic) Hospital Course and Treatment Imaging Results: Diagnostic Data Lower Extremity CT 05/30/19 14:58 IMPRESSION: Focal subcutaneous phlegmon in the posterior medial aspect of the proximal right thigh with overlying skin thickening. The focal area of phlegmon abuts the skin surface. No definite abscess is seen at this Electronically Signed: Eulogio Solares, at 15:42 EST , Service support , general surgery- Dr Diehl Operations: - Procedures: None, - - incision and drainage of abscess Summary of Care Provided: The patient is a 34 year old F with a past medical history of IV drug abuse. She was admitted from the local care home on 05/30/2019 with a complaint of pain, swelling and redness at the back of her left thigh. Patient says she noticed it a few days prior to admission, when she saw a small red spot at the back of her left thigh, which she thought was an ingrown hair. Redness subsequently expanded, and became swollen. She realised that the area ruptured, and drained pus. Swelling and pain however worsened, so she decided to come into the ED. She denied fever, but admitted to chills. Review of systems was otherwise negative. She was started on PO keflex in care home, but this didnt help. She was subsequently put on bactrim, which she received one dose of, and decided to come into the ED . Vitals in the ED wre stable, CBC showed wbc of 13.1, and BMP was unremarkable. RLE CT showed focal subcutaneous phlegnom in the posterior medial aspect of the proximal right thigh with overlying skin thickening, with no defintes abscess seen. She denied injecting into that area. She was admitted to be managed for cellulitis of the RLE. She had I&D done down in the ED by general surgery drainage of about 5 cc of pus. She was put on IV vancomycin. Wound culture at MRSA. Redness, pain and swelling improved gradually on IV vancomycin. Patient remained stable and was discharged back to the care home on 06/01/2019. She was discharged with a prescription for p.o. doxycycline for 10 days. She is to follow-up with general surgery on 06/03/2019. She was given directions about how to pack and dress wound twice in the care home by general surgery. Patient seen and examined prior to discharge. She had no complaints. Pain and swelling as well as redness had improved markedly. Review of systems is otherwise negative. Labs and vitals reviewed. WBC has trended down to 6.6 from 13.1 on admission. o/e: Vital Signs Height 5 ft 3 in Weight: 154 lb Weight in Pounds 154.0 lbs Pulse Ox 98 Temperature 98.4 F Pulse Rate [4] 74 Pulse Rate [3] 75 Pulse Rate [2] 78 Pulse Rate [1 (Initial 76 Baseline)] Pulse Rate 85 Respiratory Rate [4] 30 Respiratory Rate [3] 28 Respiratory Rate [2] 27 Respiratory Rate [1 (Initial 20 Baseline)] Respiratory Rate 18 Blood Pressure [4] 94/55 Blood Pressure [3] 94/55 Blood Pressure [2] 96/73 Blood Pressure [1 (Initial 103/71 Baseline)] Blood Pressure 145/98 Blood Pressure Position Sitting General: Alert, Oriented x3, Cooperative, No apparent distress HEENT: Atraumatic, PERRLA, EOMI, Normocephalic Oral: Moist Mucosa Neck: Supple, No JVD, Negative Carotid Bruits Lungs: Clear to auscultation, Normal air movement, No rhonchi, No wheeze, No rales Cardiovascular: Regular rate, Regular Rhythm, Normal S1, Normal S2, No murmurs Abdomen: Bowel Sounds Present, Soft, Non Tender, Non-Distended, No Hepato-splenomegaly Extremities: No clubbing, No cyanosis, No edema, Capillary Refill Less than 3 Seconds Skin: - -minimal redness and tenderness have improved; has open ulcer ~ 5x4cm on posterior right thigh, with some minimal slough in the floor of the wound. has track delatorre over extremities Musculoskeletal: No Tenderness to Palpation of Joints or Extremities Lymphatic: No Cervical, Supraclavicular, or Inguinal Adenopathy Neurological: Cranial nerves II-XII grossly intact Psych/Mental Status: Normal Affect, Appropriate, Alert and oriented to time, place, person, mood and affect Plan is for dc back to [facility] with a prescription for p.o. doxycycline 100 mg twice daily for 10 days. - Physical Exam Vitals/I&O's: Vital Signs Temp Pulse Resp BP Pulse Ox 98.0 F 73 16 116/99 H 97 06/01/19 02:46 06/01/19 02:46 06/01/19 02:46 06/01/19 02:46 06/01/19 02:46 Oxygen Flow Rate (L/min) [4] 2 Oxygen Flow Rate (L/min) [3] 2 Oxygen Flow Rate (L/min) [2] 2 Oxygen Flow Rate (L/min) [1 ( 2 Initial Baseline)] Oxygen Delivery Method [4] Room Air Oxygen Delivery Method [3] Nasal Cannula Oxygen Delivery Method [2] Nasal Cannula Oxygen Delivery Method [1 ( Nasal Cannula Initial Baseline)] Oxygen Delivery Method Room Air Weight: 154 lb Body Mass Index (BMI) 27.3 Intake and Output for Last 24 Hours 05/30/19 05/31/19 06/01/19 23:59 23:59 23:59 Intake Total 934.0 / 934.0 4766.0 / 5566.0 2561.5 / 2561.5 Balance 934.0 / 934.0 4766.0 / 5566.0 2561.5 / 2561.5 Microbiology Past 72 Hours 05/30/19 17:00 Boil - Leg Gram Stain - Final 05/30/19 17:00 Boil - Leg Wound Culture - Final Meth. resistant Staph. aureus Laboratory Results 05/31/19 16:42: Vancomycin Trough 6.8 06/01/19 07:03: WBC 6.6, RBC 3.82 L, Hgb 10.6 L, Hct 32.9 L, MCV 86.1, MCH 27.7, MCHC 32.2, RDW Std Deviation 44.4 H, RDW Coeff of Tenisha 14.3, Plt Count 236, MPV 8.9, Immature Gran % (Auto) 0.600, Neut % (Auto) 36.3 L, Lymph % (Auto) 50.8 H, Villalba % (Auto) 7.2, Eos % (Auto) 4.3, Baso % (Auto) 0.8, Absolute Neuts (auto) 2.4, Absolute Lymphs (auto) 3.34, Nucleated RBC % 0 06/01/19 07:03: Sodium 142, Potassium 4.1, Chloride 109 H, Carbon Dioxide 28.0, Anion Gap 5, BUN 8, Creatinine 0.48 L, Estim Creat Clear Calc 135.32, Est GFR (MDRD) Af Amer 189, Est GFR (MDRD) Non-Af 156, BUN/Creatinine Ratio 16.6, Glucose 87, Calcium 8.4 L Current Medications Acetaminophen (Tylenol) 650 mg PO Q6H PRN PRN PRN Reason: Pain Score 1-10/Temp > 100.7 F Last Admin: 06/01/19 04:35 Dose: 650 mg Documented by: Enoxaparin Sodium (Lovenox) 40 mg SC DAILY [facility] Last Admin: 05/31/19 08:40 Dose: 40 mg Documented by: Glucagon () 1 mg IM .X1 PRN PRN Reason: Hypoglycemia Sodium Chloride () 1,000 mls @ 150 mls/hr IV .Q6H40M [facility] Last Infusion: 06/01/19 08:06 Dose: 0 mls/hr Documented by: Ampicillin Sodium/Sulbactam (Sodium 3 gm/ Sodium Chloride) 112 mls @ 150 mls/hr IV Q6 [facility] Last Infusion: 06/01/19 05:57 Dose: Infused Documented by: Vancomycin IV Pharmacy to Dose (1 ea/ Sodium Chloride) 500 mls @ 250 mls/hr IV X1 PRN; Protocol PRN Reason: Rx to Dose Dextrose (Dextrose 10%-Water) 250 mls @ 999 mls/hr IV .Q16M PRN; Protocol PRN Reason: HYPOGLYCEMIA Vancomycin HCl (Vancomycin) 1,000 mg in 200 mls @ 200 mls/hr IV Q8H [facility] Last Admin: 06/01/19 08:01 Dose: 200 mls/hr Documented by: Ibuprofen (Motrin) 400 mg PO Q4H PRN PRN PRN Reason: Pain Score 1-10/Temp > 100.7 F Last Admin: 06/01/19 00:29 Dose: 400 mg Documented by: Ondansetron HCl (Zofran) 4 mg IV Q8H PRN PRN PRN Reason: NAUSEA/VOMITING Sodium Chloride () 10 - 40 ml IV UD PRN PRN Reason: SALINE FLUSH Last Admin: 06/01/19 02:48 Dose: 10 ml Documented by: Discharge Diet: No Restrictions Discharge Activity: Return to Normal Activity, May Shower Weight Bearing Status: Weight bearing as tolerated Call your doctor if your incision/area has: Continuous Slow Oozing, Sudden Increased Bleeding, Increased Pain/ Swelling, Increased Redness, Foul Smelling Discharge, Swelling at the incision site Call your doctor if you observe: Fever of 101 or Higher, Uncontrolled pain Change Dressing in (Days):: 0 Cleanse incision/area with: Normal Saline Additional Dressing/Incision Instructions:: Removal of packing. New sterile saline to rinse/irrigate the wound about 10 cc. Change packing to the right posterior thigh every 8 hours with a wet-to-dry dressing. Take 4 x 4 gauze into a single layer soak with sterile saline, squeeze to remove as much fluid as possible. Packed this into the wound remove any excess packing. The packing should not be on the normal skin and should only be in the wound. Cover with 4 x 4 and ABD and use Kerlix to secure Home Medications: Medications to take at Discharge Smz/Tmp Ds [Bactrim Ds] 1 tab PO BID 05/30/19 Doxycycline 100 mg PO BID #20 cap 06/01/19 Ibuprofen [Motrin] 400 mg PO Q4H PRN PRN #20 tab 06/01/19 Following Prescrptions Were Given to Patient: Doxycycline 100 mg PO BID #20 cap Transmission Status: Received by [facility] [place] #30 Ibuprofen [Motrin] 400 mg PO Q4H PRN PRN #20 tab PRN Reason: Pain Score 1-10/Temp > 100.7 F Transmission Status: Received by [facility] [place] #30 Primary Care Physician: Richar Chris MD [Primary Care Provider] - Please follow up with your Primary Care Physician in: one week Please Follow Up With: Sherita Diehl MD - After 5:00 and on the weekends call [phone] When: 06/03/2019 at 8:30 aM appointment scheduled?office number is [phone]/Law Enforcement Minutes spent on discharge:: 40 Patient Condition:: Stable Medical Necessity - Tobacco Use Smoking Status: Current every day smoker Tobacco Use: Cigarettes Meaningful Use Info Meaningful Use Diagnoses (Choose all that apply): None applicable Code Visit Inpatient E&M: 86865 Disch Hosp
[2019-06-01 10:09] VITALS: BP 145/98; PULSE 85; RESP 18; TEMP 36.9; O2SAT 98
[2019-06-01] MEDS: Enoxaparin 40 MG/0.4 ML Syringe SC (10:10)
== END 2019-06-01 10:35 | DRG 383 ==
LOC: ED 15:10 → MS3 16:45
PROVIDERS: Admitting Provider Student in an Organized Health Care Education/Training Program; Emergency Provider Emergency Medicine; PCP Family Medicine; Referring Provider Student in an Organized Health Care Education/Training Program; Visit Provider Student in an Organized Health Care Education/Training Program
DX: L02.415 Cutaneous abscess of right lower limb (principal); L03.115 Cellulitis of right lower limb; Z79.2 Long term (current) use of antibiotics; F11.20 Opioid dependence, uncomplicated; B18.2 Chronic viral hepatitis C; F17.210 Nicotine dependence, cigarettes, uncomplicated
CPT/HCPCS: 36415; 73701; 80048; 80202; 83605; 85025; 87070; 87077; 87186; 87205; 99152; 99285; 99406; J7030; J7050; Q9967; A4216; J0295

== ENCOUNTER 2019-07-10 16:02 | Emergency (ER) | payer MEDICAID, SELFPAY ==
[2019-06-06 09:37] VITALS: BMI 27.3
[2019-07-10 16:04] VITALS: BP 145/100; PULSE 125; RESP 18; TEMP 36; O2SAT 95; BMI 28.1
--- NOTE | 2019-07-10 16:40 | RAD_ITS ---
STUDY: X-RAY CHEST REASON FOR EXAM: Female, 34 years old. sore throat with cough TECHNIQUE: Single AP portable view of the chest. COMPARISON: None. FINDINGS: The lungs are clear and expanded. There is no demonstrated pleural abnormality. Normal size heart. Normal mediastinum and laura. Normal visualized pulmonary arteries. Normal visualized aortic arch and descending thoracic aorta. Normal visualized thoracic spine. Normal visualized ribs, clavicles, and shoulders. There is no demonstrated abnormality of the visualized soft tissue structures of the upper abdomen. RAD/Chest 1 View (Portable) IMPRESSION: Normal x-ray examination of the chest. Electronically Signed: Sunday Harry MD at 17:02 EDT , Service support ,
--- NOTE | 2019-07-10 17:03 | ED.DCSUM_ITS ---
- ER Visit Summary Date of Service: 07/10/19 Chief Complaint: Sore throat History of Present Illness: The patient is a 34 F who presents with sore throat, shortness of breath, and dental pain that is been getting worse over the past 5 days. Patient states her throat pain is worse with eating, drinking, and talking. Patient does admit to a cough. Patient states she broke a piece of her tooth off and this has been rubbing against her tongue. Patient states that is causing ulceration of her tongue. Patient also states that she has a cracked lip. Patient denies any fevers or chills. Patient denies any sputum production. Patient does admit to a headache. Physical Examination: Vital signs are stable. Patient is afebrile. Patient is in no acute distress. Oral mucosa is pink and moist. Oropharynx is erythematous. There are no exudates. Neck is supple. Trachea is midline. There is no JVD or lymphadenopathy. The right tympanic membrane is clear. The left tympanic membrane has a mild effusion but no erythema. Heart was regular rate and rhythm. Lungs are clear and equal bilaterally. Abdomen is soft. Bowel sounds are normal. There is no tenderness. Cranial nerves II through XII are intact. There are no focal motor or sensory deficits. Test Results: Portable AP chest x-ray was obtained. There is no acute cardiopulmonary process. Rapid strep was obtained and was positive. Rapid flu was obtained and was negative. RSV swab was obtained and was negative. Emergency Department Course and Treatment: Patient was given a dose of amoxicillin here. Patient was also given a dose of ibuprofen. Patient was given a prescription for amoxicillin. Patient was instructed to drink plenty of fluids. Patient was instructed to follow-up with a dentist in 5 to 7 days. Patient was instructed to use Orajel as needed for dental pain. Patient was instructed to follow-up with her primary care physician in 5 to 7 days. Patient was instructed to take ibuprofen or Tylenol as needed for her throat pain. Patient was instructed to return if worse in any way. Patient understood and was agreeable with the plan. All questions were answered. Disposition: Discharge home Impression: Strep pharyngitis This note was generated with [employer] software. It may contain incorrect words, spelling, and punctuation that were not noted in review of the chart prior to signing ED Disposition - Plan for ED Patient: Disposition: Home or Assisted Living Diagnosis: Strep pharyngitis Instructions: ED Pharyngitis Strep Confirmed Prescriptions: Amoxicillin 500 mg PO TID #30 tab Prescription Printed Referrals: Richar Chris MD [Primary Care Provider] - 5-7 Days
[2019-07-10 17:33] VITALS: BP 145/100; PULSE 125; RESP 18; TEMP 36; O2SAT 95
[2019-07-10 18:07] VITALS: BP 145/100; PULSE 125; RESP 18; TEMP 36; O2SAT 95
[2019-07-10] MEDS: AMOXICILLIN 500 MG CAPSULE PO (18:09)
[2019-07-10] MEDS: Ibuprofen 400 MG Tablet 800 MG PO (18:09)
== END 2019-07-10 18:09 | disposition home or self-care (01) ==
PROVIDERS: Emergency Provider Emergency Medicine; PCP Family Medicine
DX: J02.0 Streptococcal pharyngitis (principal); K08.89 Other specified disorders of teeth and supporting structures; Z72.0 Tobacco use
CPT/HCPCS: 71045; 87804; 87807; 87880; 99283